=== PATIENT | male | born 2000 | race Caucasian/White ===

== ENCOUNTER 2023-04-30 12:29 | Outpatient (AMB) | payer OTHER, SELFPAY ==
--- NOTE | 2023-04-30 12:34 | A.OFFPC_ITS ---
Vital Signs 04/30/23 12:38 Height 6 ft 3 in Weight 142 lb 4 oz BMI 17.8 BP 128/82 Blood Pressure Location Lt brachial Position Sitting Pulse 75 Pulse Source Pulse Oximeter Pulse Oximetry (%) 99 Oxygen Delivery Method Room Air Intake Visit Reasons: NPV/ kidney issues Allergies NSAIDS (Non-Steroidal Anti-Inflamma Allergy (Mild, Verified 04/30/23 12:54) Agitated Medication List - Last Reconciled 04/30/23 by VERONICA Thakur No Known Home Meds Tobacco use date assessed: 04/30/23 Dental Screening Dental Screen Date: 04/30/23 Did you have a dental visit in the last 12 months?: No Did you have a dental problem in the last 6 months where you did not have access to dental care?: No Was dental information given to patient?: Yes HPI HPI Comments History of Present Illness Details 22-year-old male with CKD2, hydronephros is of the left kidney status post nephrectomy for nonfunctioning right kidney in 2001, 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 Echocardiogram within normal limits in 2018, echo in 2019., MDD, asthma, TOMASZ Specialists: Renal at [facility] , next visit 05/2023 Health Maintenance: Dental - out of care, needs list - provided today Here today to [facility] Reports has been out of care since Peds transition Reports that his renal conditions are currently being followed. Had blood work done recently. Unsure with the results are. This was done at [facility]. We will send a request for these records. Other concerns today include weight loss in the setting of a new sedentary job. Reports he was lifting weights and quite active before. Now that he has not as active he feels like he has lost a lot of muscle mass in his having a hard time gaining weight. He would like a referral to a cone machine feeder. When asked about Cardiology follow up given the Marfan syndrome he reports that he was told no need for additional follow up as he does not actually meet the criteria for Marfan. Last echo was in 2018. Has frequent headaches in his using Tylenol with good effect. Avoiding NSAIDs given his renal function Admits depressive and anxiety symptoms. Was on meds in the past. Last time about 4 years ago. Stopped taking on his own. Interested in counseling. Not interested in medications at this time. Feels exhausted all the time. Feels like he sleeps okay. Despite this he feels really really tired. Finally complains about chronic neck back and shoulder pain. Wants to see a chiropractor. The [place] Sleepiness Scale The [place] Sleepiness Scale is widely used in the field of sleep medicine as a subjective measure of a patient's sleepiness. The test is a list of eight situations in which you rate your tendency to become sleepy on a scale of 0, no chance of dozing, to 3, high chance of dozing. When you finish the test, add up the values of your responses. Your total score is based on a scale of 0 to 24. The scale estimates whether you are experiencing excessive sleepiness that possibly requires medical attention. How Sleepy Are You? How likely are you to doze off or fall asleep in the following situations? You should rate your chances of dozing off, not just feeling tired. Even if you have not done some of these things recently try to determine how they would have affected you. For each situation, decide whether or not you would have: ? No chance of dozing =0 ? Slight chance of dozing =1 ? Moderate chance of dozing =2 ? High chance of dozing =3 Write down the number corresponding to your choice in the right hand column. Total your score below. Situation Chance of Dozing Sitting and reading 1 Watching TV 2 Sitting inactive in a public place (e.g., a theater or a meeting) 0 As a passenger in a car for an hour without a break 3 Lying down to rest in the afternoon when circumstances permit 3 Sitting and talking to someone 0 Sitting quietly after a lunch without alcohol 0 In a car, while stopped for a few minutes in traffic o Total Score = 9 Analyze Your Score Interpretation: 0-7:It is unlikely that you are abnormal ly sleepy. 8-9:You have an average amount of daytim e sleepiness. 10-15:You may be excessively sleepy depe nding on the situation. You may want to consider seeking medical attention. 16-24:You are excessively sleepy and taylor uld consider seeking medical attention. Reference: Abi SMITH. A new method for measuring daytime sleepiness: The [place] Sleepiness Scale. Sleep 1991; 14(6):540-5. [facility] Medical History (Updated 04/30/23 @ 15:06 by CAROL Thakur) TOMASZ (generalized anxiety disorder) MDD (major depressive disorder), recurrent episode Surgical History (Updated 04/30/23 @ 15:04 by CAROL Thakur) History of nephrectomy, right Family History (Updated 04/30/23 @ 13:41 by Ayana Buck MA) Father Throat cancer Paternal Grandmother Hypertension Diabetes Social History Household Members: Significant Other Housing: Apartment Alcohol intake: current Alcohol intake frequency: holidays/special occasions only Patient Tobacco Use Status: Never used Tobacco e-Cigarette/Vaping Use: Former Use Substance Use Type: Marijuana Current occupational status: employed Current occupation: [employer] Cognitive needs: No Hearing needs: No Vision needs: Yes Questionnaire PHQ-9 Over the last 2 weeks, how often have you been bothered by any of the following problems? 1. Little interest or pleasure in doing things: more than half the days 2. Feeling down, depressed, or hopeless: several days 3. Trouble falling or staying asleep, or sleeping too much: more than half the days 4. Feeling tired or having little energy: nearly every day 5. Poor appetite or overeating: nearly every day 6. Feeling bad about yourself - or that you are a failure or have let yourself or your family down: several days 7. Trouble concentrating on things, such as reading the newspaper or watching television: not at all 8. Moving or speaking so slowly that other people could have noticed. Or the opposite - being so fidgety or restless that you have been moving around a lot more than usual: not at all 9. Thoughts that you would be better off or of hurting yourself in some way: several days Total score: 13 Depression Screening Interpretation: Positive Depression Screening Follow-up: Existing condition, Community Mental Health Worker F/U and Follow-up Visit Requested Depression Screening Done: Yes 83485 - PHQ-9 Billing: Yes Source: Developed by Drs. Oumar Bauer, Grace Noé Mckenzie and colleagues, with an educational suzan from [employer]. Thrive Questionnaire Date Thrive assessed: 04/30/23 I am a: Patient What is your living situation today?: I have a steady place to live Within the past 12 months, did the food you bought not last and you didn't have the money to get more?: Often true Within the past 12 months, did you worry whether your food would run out before you got money to buy more?: Often true Do you have trouble paying for medicines?: No Do you have trouble getting transportation to medical appointments?: No Do you have trouble paying your heating and electricity bill?: Yes Do you have trouble taking care of your child, family member or friend?: No Do you have trouble with day-to-day activities such as bathing, preparing meals, shopping, managing finances, etc.?: Yes Are you currently unemployed and looking for a job?: No Are you interested in more education?: No Please select the resources that you would like help with: Food and Daily support Currently or been in a relationship where the following occur: no concerns reported THRIVE Score: 3 AUDIT C Alcohol Use Questionnaire (AUDIT-C) 1. How often do you have a drink containing alcohol?: Monthly or less 2. How many drinks containing alcohol do you have on a typical day when you are drinking?: 1 or 2 3. How often do you have six or more drinks on one occasion?: Never Total Score: 1 Score Reviewed/Action Taken: Yes TOMASZ-7 AMB Questionnaire TOMASZ-7 Feeling nervous, anxious, or on edge: 2 = More than half the days Not being able to stop or control worryin = More than half the days Worrying too much about different things: 2 = More than half the days Trouble relaxin = More than half the days Being so restless that it is hard to sit still: 1 = Several days Becoming easily annoyed or irritable: 3 = Nearly every day Feeling afraid as if something awful might happen: 1 = Several days Total TOMASZ-7 score (0-4 normal; 5-9 mild; 10-14 moderate; 15-21 severe): 13 Source: Developed by Drs. Oumar Bauer, Noé Flores and colleagues, with an educational suzan from [employer]. TOMASZ-7 Assessment Billing TOMASZ-7 Assessment Tool: TOMASZ-7 Assessment 15796 Review of Systems Const All systems reviewed & are unremarkable except as noted in HPI and below Physical exam (Primary Care) Vital Signs: Last Vital Signs Pulse 75 04/30/23 12:38 BP 128/82 04/30/23 12:38 Pulse Ox 99 04/30/23 12:38 Oxygen Delivery Method Room Air 04/30/23 12:38 BMI result Body Mass Index 17.8 Tobacco/Smoking Status: Tobacco use Status Tobacco use date assessed 04/30/23 04/30/23 12:47 Patient Tobacco Use Status Never used Tobacco 04/30/23 12:47 e-Cigarette/Vaping Use Former Use 04/30/23 12:47 PHQ-9: PHQ-9 Score PHQ-9: Total score 13 04/30/23 13:42 Depression Screening Interpretation: Positive Depression Screening Follow-up: Existing condition, Community Mental Health Worker F/U and Follow-up Visit Requested Thrive Assessment: Date of Thrive Assessment Date Thrive assessed 04/30/23 04/30/23 13:42 Currently or been in a relationship where the following occur: no concerns reported Const Other: Awake alert oriented Tall and thin Mucous membranes moist Regular rate and rhythm Lung sounds clear to auscultation Mood and affect appropriate. Mildly anxious. Assessment and Plan Assessment & Plan (1) Underweight: Code(s): R63.6 - Underweight (2) History of nephrectomy, right: Comment: hydronephrosis of the left kidney status post nephrectomy for nonfunctioning right kidney in 2001, left vesicular ureteral reflux and post ureteral valve, valve fulguration as a in the left reimplantation in 2001 and again in 2002, Code(s): Z90.5 - Acquired absence of kidney (3) Marfanoid habitus: Comment: malar hypoplasia, enophthalmos, downward slanting palpebral fissures, positive wrist and thumb sign, scoliosis. Echocardiogram within normal limits in 2018. reports no longer requires cards f/u or Echo. Refer to chiro for c/o chronic neck, back, shoulder pain Code(s): R29.91 - Unspecified symptoms and signs involving the musculoskeletal system (4) CKD (chronic kidney disease) stage 2, GFR 60-89 ml/min: Comment: hydronephrosis of the left kidney status post nephrectomy for nonfunctioning right kidney in 2001, left vesicular ureteral reflux and post ureteral valve, valve fulguration as a in the left reimplantation in 2001 and again in 2002, Code(s): N18.2 - Chronic kidney disease, stage 2 (mild) (5) MDD (major depressive disorder), recurrent episode: Comment: Referred to counseling today. Was on medications in the past. We will discuss at next visit starting medications Code(s): F33.9 - Major depressive disorder, recurrent, unspecified Qualifiers: Major depression episode severity: mild Qualified Code(s): F33.0 - Major depressive disorder, recurrent, mild (6) TOMASZ (generalized anxiety disorder): Comment: Referred to counseling today. Was on medications in the past. We will discuss at next visit starting medications Code(s): F41.1 - Generalized anxiety disorder (7) Hypersomnolence: Code(s): G47.10 - Hypersomnia, unspecified Plan: slep study ordered (8) Fatigue: Code(s): R53.83 - Other fatigue Plan: sleep study ordered (9) Limited access to food: Code(s): Z59.48 - Other specified lack of adequate food Plan: Nurse Alfonso referral placed Plan This note is constructed using voice recognition software. While every effort has been made to ensure accuracy in or manager, still errors may have been included Sometimes, these errors may affect the content or meaning of the given sentence . Total time spent caring for the patient today was 60 minutes. This includes time spent before the visit reviewing the chart, time spent during the visit, and time spent after the visit on documentation Orders: Orders RT home sleep study Today G47.10 - Hypersomnia, unspecified, R53.83 - Other fatigue Referrals Nurse Navigator Referral F33.9 - Major depressive disorder, recurrent, unspecified, F41.1 - Generalized anxiety disorder Chiropractic Referral R29.91 - Unspecified symptoms and signs involving the musculoskeletal system Frame And Scrap Crusher Nutrition Referral R63.6 - Underweight Nurse Navigator Referral Z13.9 - Encounter for screening, unspecified, Z59.48 - Other specified lack of adequate food Patient Instructions: RTO 4 WEEKS TO REVIEW LABS AND DISCUSS SLEEP STUDY RESULTS AND MEDS FOR TOMASZ/MDD Coding Level of Care Code New Pt Level 5 (29373) Diagnoses Underweight R63.6 History of nephrectomy, right Z90.5 Marfanoid habitus R29.91 CKD (chronic kidney disease) stage 2, GFR 60-89 ml/min N18.2 Mild episode of recurrent major depressive disorder F33.0 Major depression episode severity: mild TOMASZ (generalized anxiety disorder) F41.1 Hypersomnolence G47.10 Fatigue R53.83 Limited access to food Z59.48 Additional Codes TOMASZ-7 Assessment Billing - TOMASZ-7 Assessment Tool: TOMASZ-7 Assessment [id number] ([id number])
[2023-04-30 12:38] VITALS: BP 128/82; PULSE 75; O2SAT 99; BMI 17.8
== END 2023-04-30 13:29 | disposition home or self-care (01) ==
PROVIDERS: PCP Nurse Practitioner Family; Visit Provider Nurse Practitioner Family
DX: R63.6 Underweight (principal); F33.0 Major depressive disorder, recurrent, mild; Z90.5 Acquired absence of kidney; R29.91 Unspecified symptoms and signs involving the musculoskeletal system; N18.2 Chronic kidney disease, stage 2 (mild); F41.1 Generalized anxiety disorder; G47.10 Hypersomnia, unspecified; R53.83 Other fatigue; Z59.48 Other specified lack of adequate food
CPT/HCPCS: 99205

== ENCOUNTER 2023-06-11 14:30 | Outpatient (AMB) | payer OTHER, SELFPAY ==
--- NOTE | 2023-06-11 14:42 | A.OFFPC_ITS ---
Vital Signs 06/11/23 14:47 Height 6 ft 3 in BP 124/87 Blood Pressure Location Rt brachial Position Sitting Respiration 13 Pulse 82 Pulse Source Pulse Oximeter Temp 98.4 F Temp Source Temporal Artery Scan Pulse Oximetry (%) 98 Oxygen Delivery Method Room Air Intake Visit Reasons: F/U LABS, SLEEP STUDY, Intake Note: Patient is here to follow up for labs and sleep study. Patient states he would like to discuss PT referral which is currently prescribed for 3x weekly for 4 weeks. Patient states his insurance is not good and this means copays every appointment and it isn't affordable right now. Patient reports he has not heard back from referrals he had asked for. 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 Echocardiogram within normal limits in 2018, echo in 2019., MDD, asthma, TOMASZ Specialists: Renal at [facility] , next visit 05/2023 [facility] Health Maintenance: Dental - out of care, needs list - provided today Here today for CPE: Will be seeing Chiro 3x/week x 4 weeks. Admits cannot afford the copays for this therapy. It was beneficial. Sleep study pending Would like to restart sertraline for mood; was on it in the past and did well. [facility] [place] Medical History (Updated 06/11/23 @ 15:46 by CAROL Thakur) TOMASZ (generalized anxiety disorder) MDD (major depressive disorder), recurrent episode Surgical History (Updated 04/30/23 @ 15:04 by CAROL Thakur) History of nephrectomy, right Family History (Updated 04/30/23 @ 13:41 by Ayana Buck [facility]) Father Throat cancer Paternal Grandmother Hypertension Diabetes Social History (Updated 06/11/23 @ 14:50 by Makenna Elise [facility]) Household Members: Significant Other Housing: Apartment Are you a primary child care center assistant director to a significant other at home: No Do you presently have visiting nurse or other home services: No 75 years or older and lives alone: No Alcohol intake: current Alcohol intake frequency: holidays/special occasions only Patient Tobacco Use Status: Never used Tobacco e-Cigarette/Vaping Use: Former Use Substance Use Type: Marijuana service: No Current occupational status: employed Current occupation: [employer] Current occupational exposures/hazards: No Sexual orientation: Straight/Heterosexual Gender identity: Male Cognitive needs: No Hearing needs: No Vision needs: Yes Questionnaire Thrive Questionnaire Date Thrive assessed: 04/30/23 Review of Systems Const Details: Constitutional: Denies fever. Skin: Denies rash. Eye: Denies eye pain. ENMT: Denies sore throat and nasal congestion. Respiratory: Denies shortness of breath and cough. Gastrointestinal: Denies nausea, vomiting or abdominal pain. Cardiovascular: Denies chest pain and syncope. Genitourinary: Denies dysuria. Musculoskeletal: Denies extremity pain. Neurologic: Denies headaches, confusion, and weakness. poor short term memory, falls asleep fast but wakes often throughout night; tosses and turns. witnessed apnea Psychiatric: Denies suicidal thoughts and substance abuse. Allergy/ Immunologic: Denies impaired immunity. Physical exam (Primary Care) Vital Signs: Last Vital Signs Temp 98.4 F 06/11/23 14:47 Pulse 82 06/11/23 14:47 Resp 13 06/11/23 14:47 BP 124/87 06/11/23 14:47 Pulse Ox 98 06/11/23 14:47 Oxygen Delivery Method Room Air 06/11/23 14:47 Tobacco/Smoking Status: Tobacco use Status Tobacco use date assessed 04/30/23 06/11/23 14:44 Patient Tobacco Use Status Never used Tobacco 06/11/23 14:50 e-Cigarette/Vaping Use Former Use 06/11/23 14:50 Thrive Assessment: Date of Thrive Assessment Date Thrive assessed 04/30/23 06/11/23 14:44 Const Other: General: Well developed, well nourished, in no acute distress. Appears stated age. Head: Normocephalic, atraumatic. Eyes: Pupils are equal, round and reactive to light and accommodation. Conjunctivae are clear. Vision grossly normal. Ears: cerumen impaction bilat Nose: Patent, without discharge. Mouth: There are no ulcers or lesions noted. No inflammation, no post nasal drip, no plaques nor exudates. Neck: Supple, no adenopathy or thyromegaly. Lungs: Clear to auscultation bilaterally. No rales, rhonchi or wheeze noted. Good air flow in all tabor. Heart: Regular rate and rhythm. No murmurs, click, rubs or gallops are noted. Abdomen: Bowel sounds present in all quadrants. Incidental + murphys sign noted. No hernias are noted. Musculoskeletal: Joints are nontender, without swelling, redness, or effusions. Range of motion is observed to be normal. marfanoid habitus Pulses: Peripheral pulses are equal and palpable bilaterally. Extremities: No clubbing, cyanosis nor edema is noted. Neurologic: Gait and station normal. Cranial Nerves 2-12 intact. Motor strength grossly symmetrical and intact. No sensory loss. Balance normal. Skin: No rashes, ulcers, or lesions noted. Turgor is good. Skin color is good. Hair and nails are without abnormalities. Psych: Normal eye contact, affect and mood appropriate, and normal interactions. Patient is alert and appropriate to context. 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, valve fulguration as a in the left reimplantation in 2001 and again in 2002, Code(s): N18.2 - Chronic kidney disease, stage 2 (mild) (3) Laboratory exam ordered as part of routine general medical examination: Code(s): Z00.00 - Encounter for general adult medical examination without abnormal findings (4) Positive Scott's Sign: Comment: incidental finding would like to check US Code(s): R19.8 - Other specified symptoms and signs involving the digestive system and abdomen (5) Impacted cerumen, bilateral: Comment: treat w debrox, RTO for lavage Code(s): H61.23 - Impacted cerumen, bilateral (6) TOMASZ (generalized anxiety disorder): Comment: Referred to counseling Restart sertraline 25mg po QD Code(s): F41.1 - Generalized anxiety disorder (7) MDD (major depressive disorder), recurrent episode: Comment: Referred to counseling Restart sertraline 25mg po QD Code(s): F33.9 - Major depressive disorder, recurrent, unspecified Qualifiers: Major depression episode severity: mild Qualified Code(s): F33.0 - Major depressive disorder, recurrent, mild Orders: Orders Comprehensive Met. Panel Today N18.2 - Chronic kidney disease, stage 2 (mild), Z00.00 - Encounter for general adult medical examination without abnormal findings Microalbumin, Random (w Creat) Today N18.2 - Chronic kidney disease, stage 2 (mild), Z00.00 - Encounter for general adult medical examination without abnormal findings Vitamin D 1,25 dihydroxy Today N18.2 - Chronic kidney disease, stage 2 (mild), Z00.00 - Encounter for general adult medical examination without abnormal findings Hemoglobin A1c Today N18.2 - Chronic kidney disease, stage 2 (mild), Z00.00 - Encounter for general adult medical examination without abnormal findings LDL Cholesterol Direct Today N18.2 - Chronic kidney disease, stage 2 (mild), Z00.00 - Encounter for general adult medical examination without abnormal findings TSH reflex Free T4 Today N18.2 - Chronic kidney disease, stage 2 (mild), Z00.00 - Encounter for general adult medical examination without abnormal findings US abdomen limited Today R19.8 - Other specified symptoms and signs involving the digestive system and abdomen Medications: New sertraline 25 mg PO DAILY 30 tabs 1RF carbamide peroxide 6.5% (Debrox) 5 drps otic (ears) DAILY 5 days 15 mL 0RF BILAT EARS Patient Instructions: START SERTRALINE FOR MOOD IMMEDIATLEY USE EAR DROPS IN BOTH EARS 5 DAYS BEFORE YOU COME TO SEE ME IN 6 WEEKS, I WILL FLUSH YOUR EARS FIND OUT ABOUT OUT OF POCKET COST FOR [place] IF COSTLY, SEND ME PORTAL MESSAGE AND I WILL CANCEL RTO IN 6 WEEKS TO F/U ON MOOD, SLEEP STUDY, LABS, ?US AND EAR LAVAGE Health screenings for men You should visit your health care provider regularly, even if you feel healthy. The purpose of these visits is to: Screen for medical issues Assess your risk for future medical problems Encourage a healthy lifestyle Update vaccinations and other preventive care services Help you get to know your provider in case of an illness Information Even if you feel fine, you should still see your provider for regular checkups. These visits can help you avoid problems in the future. For example, the only way to find out if you have high blood pressure is to have it checked regularly. High blood sugar and high cholesterol level also may not have any symptoms in the early stages. Simple blood tests can check for these conditions. There are specific times when you should see your provider or receive specific health screenings. The [place] Preventive Services Task Force publishes a list of recommended screenings. Below are screening guidelines for men ages 40 to 64. BLOOD PRESSURE SCREENING Have your blood pressure checked at least once every year. Watch for blood pressure screenings in your area. Ask your provider if you can stop in to have y our blood pressure checked. Ask your provider if you need your blood pressure checked more often if: You have diabetes, heart disease, kidney problems, or are overweight or have certain other health conditions You have a first-degree relative with high blood pressure You are Black Your blood pressure top number is from 120 to 129 mm Hg, or the bottom number is from 70 to 79 mm Hg If the top number is 130 mm Hg or greater or the bottom number is 80 mm Hg or greater, this is considered stage 1 hypertension. Schedule an appointment with your provider to learn how you can lower your blood pressure. Effects of age on blood pressure CHOLESTEROL SCREENING Cholesterol screening should begin at age 35 for men with no known risk factors for coronary heart disease. Repeat cholesterol screening should take place: Every 5 years for men with normal cholesterol levels More often if changes occur in lifestyle (including weight gain and diet) More often if you have diabetes, heart disease, kidney problems, or certain other conditions COLORECTAL CANCER SCREENING If you are under age 45, talk to your provider about getting screened. You may need to be screened if you have a strong family history of colon cancer or polyps. Screening may also be considered if you have risk factors such as a history of inflammatory bowel disease or polyps. If you are age 45 to 75, you should be screened for colorectal cancer. There are several screening tests available: A stool-based fecal occult blood (gFOBT) or fecal immunochemical test (FIT) every year A stool sDNA test every 1 to 3 years Flexible sigmoidoscopy every 5 years or every 10 years with stool testing FIT done every year CT colonography (virtual colonoscopy) every 5 years Colonoscopy every 10 years You may need a colonoscopy more often if you have risk factors for colorectal cancer, such as: Ulcerative colitis A personal or family history of colorectal cancer A history of growths in your colon called adenomatous polyps DENTAL EXAM Go to the dentist once or twice every year for an exam and cleaning. Your dentist will evaluate if you have a need for more frequent visits. DIABETES SCREENING All adults who do not have risk factors for diabetes should be screened starting at age 35 and repeated every 3 years. If you have other risk factors for diabetes, such as a first degree relative with diabetes, overweight or obesity, high blood pressure, prediabetes, or a history of heart disease, you may be tested more often. If you are overweight and have other risk factors, such as high blood pressure and are planning to become , screening is recommended. EYE EXAM Have an eye exam every 2 to 4 years ages 40 to 54 and every 1 to 3 years ages 55 to 64. Your provider may recommend more frequent eye exams if you have vision problems or glaucoma risk. Have an eye exam that includes an examination of your retina (back of your eye) at least every year if you have diabetes. IMMUNIZATIONS Commonly needed vaccines include: Flu shot: get one every year COVID-19 vaccine: ask your provider what is best for you Tetanus-diphtheria and acellular pertussis (Tdap) vaccine: have as one of your tetanus-diphtheria vaccines if you did not receive it as an adolescent Tetanus-diphtheria: have a booster (or Tdap) every 10 years Varicella vaccine: receive 2 doses if you never had chickenpox or the varicella vaccine and were born in 1980 or after Hepatitis B vaccine: receive 2, 3, or 4 doses, depending on your exact circumstances, if you did not receive these as a child or adolescent, until age 59 Shingles (herpes zoster) vaccine: at or after age 50 Ask your provider if you should receive other immunizations, especially if you have certain medical conditions, such as diabetes or are at increased risk for some diseases such as pneumonia. INFECTIOUS DISEASE SCREENING Screening for hepatitis C: all adults ages 18 to 79 should get a one-time test for hepatitis C. Screening for human immunodeficiency virus (HIV): all people ages 15 to 65 should get a one-time test for HIV. Depending on your lifestyle and medical history, you may need to be screened for infections such as syphilis, chlamydia, and other infections. LUNG CANCER SCREENING You should have an annual screening for lung cancer with low-dose computed tomography (LDCT) if: You are age 50 to 80 years AND You have a 20 pack-year smoking history AND You currently smoke or have quit within the past 15 years OSTEOPOROSIS SCREENING If you are age 50 to 64 and have risk factors for osteoporosis, you should discuss screening with your provider. Risk factors can include long-term steroid use, low body weight, smoking, heavy alcohol use, having a fracture after age 50, or a family history of hip fracture or osteoporosis. Osteoporosis PHYSICAL EXAM All adults should visit their provider from time to time, even if they are healthy. The purpose of these visits is to: Screen for diseases Assess risk of future medical problems Encourage a healthy lifestyle Update vaccinations and other preventive care services Maintain a relationship with a provider in case of an illness Your height, weight, and body mass index (BMI) should be checked at every exam. During your exam, your provider may ask you about: Depression and anxiety Diet and exercise Alcohol and tobacco use Safety, such as use of seat belts and smoke detectors Your medicines and risk for interactions PROSTATE CANCER SCREENING If you're 55 through 69 years old, before having the test, talk to your provider about the pros and cons of having a PSA test. Ask about: Whether screening decreases your chance of dying from prostate cancer. Whether there is any harm from prostate cancer screening, such as side effects from testing or overtreatment of cancer when discovered. Whether you have a higher risk of prostate cancer than others. If you are age 55 or younger, screening is not generally recommended. You should talk with your provider about if you have a higher risk for prostate cancer. Risk factors include: Having a family history of prostate cancer (especially a brother or father) Being If you choose to be tested, the PSA blood test is repeated over time (yearly or less often), though the best frequency is not known. Prostate examinations are no longer routinely done on men with no symptoms. Prostate cancer SKIN EXAM Your provider may check your skin for signs of skin cancer, especially if you're at high risk. People at high risk include those who have had skin cancer before, have close relatives with skin cancer, or have a weakened immune system. TESTICULAR EXAM The [place] Preventive Services Task Force (USPSTF) now recommends against performing testicular self-exams. Doing testicular self-exams has been shown to have little to no benefit. Earwax (Cerumen Impaction) Created in Ears Earwax, called cerumen, is produced by special wax-forming glands located in the skin of the outer one-third of the ear canal. It is normal to have cerumen in ear canal as this waxy substance serves as a self-cleaning agent with protective, lubricating, and antibacterial properties. The absence of earwax may result in dry, itchy ears. Self-cleaning means there is a slow and pharmacovigilance specialist movement of earwax and skin cells from the eardrum to the ear opening. Old earwax is constantly being transported, assisted by chewing and jaw motion, from the ear canal to the ear opening where, most of the time, it dries, flakes, and falls out. What Are the Symptoms of an Earwax Blockage? Symptoms of an earwax problem may include: Earache Feeling of plugged hearing or fullness in the ear Partial hearing loss that gets worse Tinnitus, ringing, or noises in the ear Itching, odor, or discharge Coughing Pain Infection What Causes Earwax Blockage? When a patient has wax blockage against the eardrum, it is often because they have been probing the ear with such things as cotton-tipped swabs, brody pins, or twisted napkin corners. These objects only push the wax in deeper in the ear canal. Why Is It Dangerous to Use Swabs to Remove Earwax? Wax blockage is one of the most common causes of hearing loss. This is often caused by attempts to clean the ear with cotton swabs. Most cleaning attempts merely push the wax deeper into the ear canal which is shaped like an hourglass, causing a blockage at the narrowing part of the ear canal. In addition, accide ntal trauma to the ear drum or ear bones can occur if the swab is pushed too deep. Good intentions to keep ears clean may lessen the ability to hear. The ear is a delicate and complicated body part, including the skin of the ear canal and the eardrum. Therefore, special care should be given to this part of the body. Discontinue the habit of inserting cotton-tipped swabs or other objects into the ear canals. What Are the Treatment Options? Cleaning a working ear can be done by washing it with a soft cloth, but do not insert anything into the ear. Ideally, the ear canals should never have to be cleaned. However, that isn?t always the case. The ears should be cleaned when enough earwax gathers to cause symptoms or to prevent a needed assessment of the ear by your doctor. This condition is call cerumen impaction. Most cases of ear wax blockage respond to home treatments used to soften wax. Patients can try placing a few drops of mineral oil, baby oil, glycerin, or commercial drops in the ear. Detergent drops such as hydrogen peroxide or carbamide peroxide (available in most pharmacies) may also aid in the removal of wax. Irrigation or ear syringing is commonly used for cleaning and can be performed by a physician or at home using a commercially available irrigation kit. Common solutions used for syringing include water and saline, which should be warmed to body temperature to prevent dizziness. Ear syringing is most effective when water, saline, or wax dissolving drops are put in the ear canal 15 to 30 minutes before treatment. Caution is advised to avoid having your ears irrigated if you have diabetes, a hole in the eardrum (perforation), tube in the eardrum, skin problems such as eczema in the ear canal or a weakened immune system. >> If you have been prescribed Debrox, use as directed for 5 nights and return to the office on Day 6 for an ear lavage to remove the wax<< Manual removal of earwax is also effective. This is most often performed by an ENT (ear, nose, and throat) specialist, or health insurance adjuster, using suction or special miniature instruments, and a microscope to magnify the ear canal. Manual removal is preferred if your ear canal is narrow, the eardrum has a perforation or tube, other methods have failed, or if you have skin problems affecting the ear canal, diabetes or a weakened immune system. When Should I Talk to a Doctor? If home treatments do not help, or if wax has accumulated so much that it blocks your ear canal and your ability to hear, an ENT specialist may prescribe eardrops designed to soften wax, or they may wash or vacuum it out. Your ENT specialist may also need to remove the wax under microscopic visualization. If there is a possibility of a perforation in the eardrum, consult a physician prior to trying any [id number] remedies. Putting eardrops or other products in the ear with the presence of an eardrum perforation may cause pain or an infection. Washing water through such a hole could start an infection. If you are prone to repeated wax impaction or use hearing aids, consider seeing your doctor every six to 12 months for a checkup and routine preventive cleaning. What Questions Should I Ask My Doctor? What are the benefits and risks/side effects of different cerumen removal management options: earwax softening products, water irrigation vs. physical removal? Does cerumen accumulation vary with age, gender, familial or dietary intake? How do I manage swimming underwater with cerumen impaction? Should anything be done to the ears to prevent a buildup of earwax? How often should cerumen be removed from the ears? Are ear candles a safe option for removing earwax? Coding Level of Care Code Est Pt Prev Care [id number]) Diagnoses Encounter for general adult medical examination without abnormal findings Z00.00 CKD (chronic kidney disease) stage 2, GFR 60-89 ml/min N18.2 Laboratory exam ordered as part of routine general medical examination Z00.00 Positive Scott's Sign R19.8 Impacted cerumen, bilateral H61.23 TOMASZ (generalized anxiety disorder) F41.1 Mild episode of recurrent major depressive disorder F33.0 Major depression episode severity: mild
[2023-06-11 14:47] VITALS: BP 124/87; PULSE 82; RESP 13; TEMP 36.9; O2SAT 98
== END 2023-06-11 15:43 | disposition home or self-care (01) ==
PROVIDERS: PCP Nurse Practitioner Family; Visit Provider Nurse Practitioner Family
DX: Z00.00 Encounter for general adult medical examination without abnormal findings (principal); F33.0 Major depressive disorder, recurrent, mild; H61.23 Impacted cerumen, bilateral; N18.2 Chronic kidney disease, stage 2 (mild); R19.8 Other specified symptoms and signs involving the digestive system and abdomen; F41.1 Generalized anxiety disorder
CPT/HCPCS: 99395

== ENCOUNTER → 2023-06-17 08:05 | Outpatient (REF) | payer OTHER, SELFPAY | LOC: HO.SL 08:05 | PROVIDERS: PCP Nurse Practitioner Family; Visit Provider Nurse Practitioner Family | DX: G47.10 Hypersomnia, unspecified (principal); R53.83 Other fatigue; R06.83 Snoring | CPT/HCPCS: 95806 ==

== ENCOUNTER → 2023-06-17 08:19 | Outpatient (BNV) | payer OTHER, SELFPAY | PROVIDERS: PCP Nurse Practitioner Family; Visit Provider Internal Medicine | DX: G47.10 Hypersomnia, unspecified (principal); R06.83 Snoring | CPT/HCPCS: 95806 ==

== ENCOUNTER 2023-06-23 14:28 | Outpatient (AMB) | payer OTHER, SELFPAY ==
--- NOTE | 2023-06-23 14:32 | A.OFFVIS_ITS ---
VS Expanded 06/23/23 14:53 06/30/23 10:50 Height 6 ft 3 in 6 ft 3 in Weight 146 lb 9.718 oz 147 lb BMI 18.3 18.4 Intake Visit Reasons: Underweight/ LVM Allergies NSAIDS (Non-Steroidal Anti-Inflamma Allergy (Mild, Verified 06/11/23 15:17) Agitated Nutrition Presentation Details: Pt presents for MNT for underweight .Pt was referred by PCP Kalen Benoit Pt reports highest wt highest 150 lbs and lowest wt at 130 lbs Wt loss related to multiple factors including lack of meal planning , sometimes worried about not enough money for food. Pt has a solitary kidney , left d/t right nephrectomy, has hx of TOMASZ, MDD Reports liking a variety of foods and at times choosing fast food meals d/t lack of meal planning Food choices 10 am mozzarella sticks , water at work 1-2 pm: pizza or burger/fries, water soda 5-7 pm : burrito bowl or sweetened cereal with whole milk physical activity: daily life activities etoh/smoking------ was counting calories and reaching 3500 /day , working on gradually increasing calories BS Monitoring Most Recent Diabetes Results: No Data to Display LQM-Whbqaqx-Yf.Jeor Equation Height: 6 ft 3 in Weight: 147 lb Resting Metabolic Rate: 1753.50 Diagnosis Nutrition problem #1: increased nutrient needs As related to (etiology) #1: diagnosis As evidenced by (sign/symptom) #1: low BMI (18.3 (06/2023)) [facility] Medical History (Updated 06/29/23 @ 09:20 by Edith Lara PA-C) TOMASZ (generalized anxiety disorder) MDD (major depressive disorder), recurrent episode Surgical History (Updated 04/30/23 @ 15:04 by SORAYA Thakur-) History of nephrectomy, right Family History (Updated 04/30/23 @ 13:41 by Ayana Buck LIBRARY HISTORIAN) Father Throat cancer Paternal Grandmother Hypertension Diabetes Social History (Updated 06/11/23 @ 14:50 by Makenna Elise [facility]) Household Members: Significant Other Housing: Apartment Are you a primary care rep to a significant other at home: No Do you presently have visiting nurse or other home services: No Alcohol intake: current Alcohol intake frequency: holidays/special occasions only Patient Tobacco Use Status: Never used Tobacco e-Cigarette/Vaping Use: Former Use Substance Use Type: Marijuana service: No Current occupational status: employed Current occupation: [employer] Current occupational exposures/hazards: No Sexual orientation: Straight/Heterosexual Gender identity: Male Cognitive needs: No Hearing needs: No Vision needs: Yes Assessment & Plan Assessment & Plan (1) Underweight: Code(s): R63.6 - Underweight Category: Medical Plan: Pt reports lack of meal planning and often skipping meals leading to decreased caloric intake and prevention of weight gain. Pt reports working on increasing caloric intake to 3500 and has noticed weight gain Will continue to reinforce 3 meals per day and snacks in between , goal > 3500 calories per day to promote gradual weight gain . Goal : having 3 meals and 3 snacks throughout the day , working on not skipping meals Choose nutrient dense beverages : 100% fruit juices, whole milk, smoothies Follow healthy plate method in majority of the meals provided Pt with list of food pantry choices Wt: Kg ( ) Est kcal needs as per MSJ: (40% carb, 30% protein/fat) Est fluid needs as per 25-30 ml/d: Est prot per day as per 1 g/kg bw: Recommend fiber intake : 8-10 g per day and gradually increase to 25-28 g per day for women and 35-38 g for men or as tolerated Recommend sodium intake per day : less than 1500 mg less than 2000 mg Educated patient on: ( R = reviewed V = verbalizes understanding N/R = needs review N/A = not applicable * Food sources of carbohydrate, adequate serving sizes and its role in various health conditions: R V N/R * Differences between complex carbohydrates a simple carbohydrates, role of fiber in diet: R V N/R * Lean protein sources of foods: R V NR * Differences between types of fats and role in diet (mono on saturated fat fatty acids, saturated fatty acids, trans fats): R V N/R * Food sources of sodium in salt and healthy modifications for heart health in kidney health: R V R/V * Vitamins and minerals: R V N/R * Healthy plate method concept: R V N/R * Physical activity: Benefits a precaution: R V N/R * Hypoglycemia protocol (rule of 15): R V N/R * Dietary prevention of Hyperglycemia: R V R/V Coding Level of Care Code Nutr Indiv Intake (10739) Diagnoses Underweight R63.6 Time Spent (min) 30
[2023-06-23 14:53] VITALS: BMI 18.3
[2023-07-01 14:06] VITALS: BMI 18.4
== END 2023-06-23 15:09 | disposition home or self-care (01) ==
PROVIDERS: PCP Nurse Practitioner Family; Visit Provider Dietitian, Registered
DX: R63.6 Underweight (principal)

== ENCOUNTER → 2023-06-23 14:28 | Outpatient (BNVA) | payer OTHER, SELFPAY | PROVIDERS: PCP Nurse Practitioner Family; Visit Provider Dietitian, Registered | DX: R63.6 Underweight (principal); Z68.1 Body mass index [BMI] 19.9 or less, adult; Z71.3 Dietary counseling and surveillance | CPT/HCPCS: 97802 ==

== ENCOUNTER 2023-06-29 07:47 | Outpatient (REF) | payer OTHER, SELFPAY ==
--- NOTE | ~2023-06-29 | US_ITS ---
EXAMINATION: US ABDOMEN COMPLETE CLINICAL INFORMATION: Other specified symptoms and signs involving the digestive system and abdomen. COMPARISON: None available. TECHNIQUE: Real-time imaging of the abdominal viscera. FINDINGS: PANCREAS: Obscured by bowel gas. ABDOMINAL AORTA: The proximal, mid, and distal segments are normal in caliber. INFERIOR VENA CAVA: Visualized portions are normal. LIVER: Normal. The liver is normal in size. The liver contour is normal. Parenchymal echogenicity is normal. No focal hepatic lesion. There is no intrahepatic biliary duct dilatation seen. GALLBLADDER: Normal. The gallbladder is physiologically distended without evidence of stones, sludge, polyps, wall thickening or pericholecystic fluid. COMMON BILE DUCT: Normal in caliber measuring 0.4 cm in diameter. RIGHT KIDNEY: The patient reports right kidney was removed in 2001. LEFT KIDNEY: Mildly dilated calyces doubt overt hydronephrosis. Correlate with the patient's urologic history. No renal calculi or focal parenchymal lesions. The kidney measures 13.1 cm in maximum dimension. SPLEEN: Normal. The spleen measures 12.6 cm in maximum dimension. FREE FLUID: None. US/US abdomen complete IMPRESSION: No explanation for abdominal pain and positive Scott sign. The gallbladder appears normal. No cholelithiasis. Negative sonographic Scott sign.
== END 2023-06-29 07:48 | disposition home or self-care (01) ==
LOC: HO.US 07:47
PROVIDERS: PCP Nurse Practitioner Family; Visit Provider Nurse Practitioner Family
DX: R19.8 Other specified symptoms and signs involving the digestive system and abdomen (principal)
CPT/HCPCS: 76700

== ENCOUNTER 2023-07-26 10:27 | Outpatient (AMB) | payer OTHER, SELFPAY ==
--- NOTE | 2023-07-26 10:32 | A.OFFPC_ITS ---
Vital Signs 07/26/23 10:36 Height 6 ft 3 in Weight 151 lb 4 oz BMI 18.9 BP 104/68 Blood Pressure Location Lt brachial Position Sitting Respiration 12 Pulse 69 Pulse Source Pulse Oximeter Temp 98.7 F Temp Source Oral Pulse Oximetry (%) 98 Oxygen Delivery Method Room Air Intake Visit Reasons: 6 fu labs, MDD/TOMASZ and Sleep study Intake Note: F/U. Pt didnt take ear drop medications as prescribed. Allergies NSAIDS (Non-Steroidal Anti-Inflamma Allergy (Mild, Verified 07/26/23 10:33) Agitated Medication List - Last Reconciled 07/26/23 by Kirti Tejeda, SPECIAL ASSEMBL[employer] SUPERVISOR- carbamide peroxide 6.5% (Debrox) 5 drps otic (ears) DAILY 5 days sertraline 25 mg PO DAILY Tobacco use date assessed: 07/26/23 Dental Screening Dental Screen Date: 07/26/23 Did you have a dental visit in the last 12 months?: No Did you have a dental problem in the last 6 months where you did not have access to dental care?: No Was dental information given to patient?: Patient declined HPI HPI Comments History of Present Illness Details 22-year-old male with CKD2, hydronephros is of the left kidney status post nephrectomy for nonfunctioning right kidney in 2001, 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 Echocardiogram within normal limits in 2018, echo in 2019., MDD, asthma, TOMASZ Specialists: [facility]al at [facility] , last visit 05/2023 [facility] Here today for of chronic conditions Did not use Debrox for ears. Will need to lavage bilat ears at next visit. Did not get labs done but will do this today. cont to have postprandial abd pain. Fatty foods make it worse. Pain can be so bad that he cannot stand up. Lasts only a few minutes. ABD US negative. reviewed /w him today. Taking sertraline as directed. Denies SI/HI. Mood the same. Not in counseling. Plan to increase his sertraline to 50mg QD. Incidental finding of tachycardia during his sleep study. Denies neuro or cardiac complaints. Sleep study results reviewed w/ him today. HOLTER was ordered and pending. Home sleep study 06/24/2023 negative for sleep apnea, total sleep time AHI 0. There was moderate amount of snoring, 30% of the sleep time. No nocturnal hypoxemia recorded. However in review of the heart rate stat it shows that the heart rate was 255 beats per minute on the high end at 45 beats per minute on the low end. >> rec holter I need to order labs Abd US for + murphys US/US abdomen complete IMPRESSION: No explanation for abdominal pain and positive Scott sign. The gallbladder appears normal. No cholelithiasis. Negative sonographic Scott sign. [facility] Medical History (Updated 07/26/23 @ 11:26 by CAROL Thakur) TOMASZ (generalized anxiety disorder) MDD (major depressive disorder), recurrent episode Surgical History (Updated 04/30/23 @ 15:04 by CAROL Thakur) History of nephrectomy, right Family History (Updated 04/30/23 @ 13:41 by Ayana Buck [facility]) Father Throat cancer Paternal Grandmother Hypertension Diabetes Social History (Updated 06/11/23 @ 14:50 by Makenna Elise [facility]) Household Members: Significant Other Housing: Apartment Are you a primary healthcare translator to a significant other at home: No Do you presently have visiting nurse or other home services: No 75 years or older and lives alone: No Alcohol intake: current Alcohol intake frequency: holidays/special occasions only Patient Tobacco Use Status: Never used Tobacco e-Cigarette/Vaping Use: Former Use Substance Use Type: Marijuana service: No Current occupational status: employed Current occupation: [employer] Current occupational exposures/hazards: No Sexual orientation: Straight/Heterosexual Gender identity: Male Cognitive needs: No Hearing needs: No Vision needs: Yes Questionnaire PHQ-9 Over the last 2 weeks, how often have you been bothered by any of the following problems? 1. Little interest or pleasure in doing things: several days 2. Feeling down, depressed, or hopeless: more than half the days 3. Trouble falling or staying asleep, or sleeping too much: more than half the days 4. Feeling tired or having little energy: more than half the days 5. Poor appetite or overeating: more than half the days 6. Feeling bad about yourself - or that you are a failure or have let yourself or your family down: several days 7. Trouble concentrating on things, such as reading the newspaper or watching television: not at all 8. Moving or speaking so slowly that other people could have noticed. Or the opposite - being so fidgety or restless that you have been moving around a lot more than usual: not at all 9. Thoughts that you would be better off or of hurting yourself in some way: several days Total score: 11 Depression Screening Interpretation: Positive Depression Screening Follow-up: Existing condition and In treatment Depression Screening Done: Yes 18137 - PHQ-9 Billing: Yes Source: Developed by Drs. Ouamr Bauer, Grace Smith, Noé García and colleagues, with an educational suzan from [employer]. Thrive Questionnaire Date Thrive assessed: 04/30/23 AUDIT C Alcohol Use Questionnaire (AUDIT-C) 1. How often do you have a drink containing alcohol?: Monthly or less 2. How many drinks containing alcohol do you have on a typical day when you are drinking?: 3 or 4 3. How often do you have six or more drinks on one occasion?: Never Total Score: 2 Score Reviewed/Action Taken: Yes TOMASZ-7 AMB Questionnaire TOMASZ-7 Date TOMASZ - 7 assessed: 07/26/23 Feeling nervous, anxious, or on edge: 1 = Several days Not being able to stop or control worryin = Several days Worrying too much about different things: 2 = More than half the days Trouble relaxin = More than half the days Being so restless that it is hard to sit still: 1 = Several days Becoming easily annoyed or irritable: 2 = More than half the days Feeling afraid as if something awful might happen: 2 = More than half the days Total TOMASZ-7 score (0-4 normal; 5-9 mild; 10-14 moderate; 15-21 severe): 11 Source: Developed by Drs. Oumar Bauer, Grace Smith, Noé aGrcía and colleagues, with an educational suzan from [employer]. TOMASZ-7 Assessment Billing TOMASZ-7 Assessment Tool: TOMASZ-7 Assessment 56888 Review of Systems Const All systems reviewed & are unremarkable except as noted in HPI and below Physical exam (Primary Care) Vital Signs: Last Vital Signs Temp 98.7 F 07/26/23 10:36 Pulse 69 07/26/23 10:36 Resp 12 07/26/23 10:36 BP 104/68 07/26/23 10:36 Pulse Ox 98 07/26/23 10:36 Oxygen Delivery Method Room Air 07/26/23 10:36 BMI result Body Mass Index 18.9 Tobacco/Smoking Status: Tobacco use Status Tobacco use date assessed 07/26/23 07/26/23 10:38 Patient Tobacco Use Status Never used Tobacco 07/26/23 10:38 e-Cigarette/Vaping Use Former Use 07/26/23 10:38 PHQ-9: PHQ-9 Score PHQ-9: Total score 11 07/26/23 10:41 Depression Screening Interpretation: Positive Depression Screening Follow-up: Existing condition and In treatment Thrive Assessment: Date of Thrive Assessment Date Thrive assessed 04/30/23 07/26/23 10:38 Const Other: General: Well developed, well nourished, in no acute distress. Appears stated age. Ears: cerumen impaction bilat Lungs: Clear to auscultation bilaterally. No rales, rhonchi or wheeze noted. Good air flow in all tabor. Heart: Regular rate and rhythm. No murmurs, click, rubs or gallops are noted. Abdomen: Bowel sounds present in all quadrants. No pain w/ palpation, no organomegaly. No hernias are noted. Musculoskeletal: Joints are nontender, without swelling, redness, or effusions. Range of motion is observed to be normal. marfanoid habitus Neurologic: Gait and station normal. Cranial Nerves 2-12 intact. Motor strength grossly symmetrical and intact. No sensory loss. Balance normal. Psych: Normal eye contact, affect and mood appropriate, and normal interactions. Patient is alert and appropriate to context. mildly anxious, very polite Assessment and Plan Assessment & Plan (1) Positive Scott's Sign: Comment: negative US findings Check H PYlori stool Code(s): R19.8 - Other specified symptoms and signs involving the digestive system and abdomen (2) Impacted cerumen, bilateral: Comment: treat w debrox, RTO for lavage Code(s): H61.23 - Impacted cerumen, bilateral (3) Tachycardia: Comment: check holter & labs Code(s): R00.0 - Tachycardia, unspecified (4) TOMASZ (generalized anxiety disorder): Comment: Referred to counseling - no appt yet increase sertraline from 25 mg to 50mg QD Code(s): F41.1 - Generalized anxiety disorder (5) MDD (major depressive disorder), recurrent episode: Comment: see TOMASZ Code(s): F33.9 - Major depressive disorder, recurrent, unspecified Qualifiers: Major depression episode severity: mild Qualified Code(s): F33.0 - Major depressive disorder, recurrent, mild Plan This note is constructed using voice recognition software. While every effort has been made to ensure accuracy in manager event, still errors may have been included Sometimes, these errors may affect the content or meaning of the given sentence . Total time spent caring for the patient today was 30 minutes. This includes time spent before the visit reviewing the chart, time spent during the visit, and time spent after the visit on documentation Orders: Orders H pylori Ag Stool Today R19.8 - Other specified symptoms and signs involving the digestive system and abdomen Medications: New sertraline 50 mg PO DAILY 30 tabs 1RF Discontinued sertraline Discontinued Reason: Change Referral Type 25 mg PO DAILY 30 tabs 1RF Patient Instructions: Increase sertraline to 50mg daily (ok to take 2 of the 25mg that you have right now ) PLease get the Holter monitor done along w/ your labs and stool sample Use the ear drops and return for ear lavage 6 weeks 30 min with [place] LABs, Ear lavage, MDD/TOMASZ, abd pain Coding Level of Care Code Est Pt Level 4 (49764) Diagnoses Positive Scott's Sign R19.8 Impacted cerumen, bilateral H61.23 Tachycardia R00.0 TOMASZ (generalized anxiety disorder) F41.1 Mild episode of recurrent major depressive disorder F33.0 Major depression episode severity: mild Additional Codes TOMASZ-7 Assessment Billing - TOMASZ-7 Assessment Tool: TOMASZ-7 Assessment 08231 ([id number])
[2023-07-26 10:36] VITALS: BP 104/68; PULSE 69; RESP 12; TEMP 37.1; O2SAT 98; BMI 18.9
== END 2023-07-26 11:30 | disposition home or self-care (01) ==
PROVIDERS: PCP Nurse Practitioner Family; Visit Provider Nurse Practitioner Family
DX: R19.8 Other specified symptoms and signs involving the digestive system and abdomen (principal); F33.0 Major depressive disorder, recurrent, mild; H61.23 Impacted cerumen, bilateral; R00.0 Tachycardia, unspecified; F41.1 Generalized anxiety disorder
CPT/HCPCS: 99214

== ENCOUNTER 2023-07-26 11:38 | Outpatient (REF) | payer OTHER, SELFPAY ==
[2023-07-26 15:03] LABS: Creatinine Urine 83.79 mg/dL; Microalbumin Urine < 5.0 mg/L
[2023-07-26 15:12] LABS: Estimated Average Glucose 91 mg/dL; Hemoglobin A1c % 4.8 % (<6.0)
[2023-07-26 15:16] LABS: Alanine Aminotransferase 21 U/L (0-40); Albumin Level 4.6 g/dL (3.5-5.0); Alkaline Phosphatase 79 U/L (39-117); Anion Gap 10 (12-20); Aspartate Amino Transferase 23 U/L (5-37); Blood Urea Nitrogen 12 mg/dL (9-16); Calcium 9.9 mg/dL (8.4-10.2); Carbon Dioxide 28 mmol/L (22-29); Chloride 107 mmol/L (96-108); Estimated Glomerular Filt Rate > 60; Glucose Random 85 mg/dL (60-115); Potassium 3.6 mmol/L (3.3-5.1); Sodium 141 mmol/L (135-145); TSH reflex Free T4 0.71 uIU/mL (0.32-4.0); Total Protein 7.2 g/dL (6.5-8.0)
[2023-07-28 02:40] LABS: LDL Cholesterol Direct 81 mg/dL (<100)
[2023-07-30 21:44] LABS: VITAMIN D (1,25 OH) D3 26 pg/mL; Vit D (1,25-Dihydroxy) Total 26 pg/mL (18-72); Vitamin D (1,25 OH) D2 <8 pg/mL
== END 2023-07-26 11:39 | disposition home or self-care (01) ==
LOC: HO.WFDLDS 11:38
PROVIDERS: Visit Provider Nurse Practitioner Family
DX: Z00.00 Encounter for general adult medical examination without abnormal findings (principal); Z13.1 Encounter for screening for diabetes mellitus; N18.2 Chronic kidney disease, stage 2 (mild)
CPT/HCPCS: 36415; 80053; 82043; 82570; 82652; 83036; 83721; 84443

== ENCOUNTER → 2023-07-30 07:07 | Outpatient (REF) | payer OTHER, SELFPAY ==
--- NOTE | 2023-07-30 07:10 | HM_ITS ---
* Total monitoring time 1 day. * Underlying rhythm is sinus. Average ventricular rate 73/Min. * No significant ectopy, lydia or tachyarrhythmias. * No significant pauses or AV blocks. * No patient markers or diary events. MTDD
== END ==
LOC: HO.CARD 07:07
PROVIDERS: PCP Physician Assistant; Visit Provider Physician Assistant
DX: R00.0 Tachycardia, unspecified (principal); R00.1 Bradycardia, unspecified
CPT/HCPCS: 93225

== ENCOUNTER → 2023-07-30 07:10 | Outpatient (BNV) | payer OTHER, SELFPAY | PROVIDERS: PCP Physician Assistant; Visit Provider Internal Medicine | DX: R00.0 Tachycardia, unspecified (principal) | CPT/HCPCS: 93227 ==

== ENCOUNTER 2023-08-09 08:27 | Outpatient (AMB) | payer OTHER, SELFPAY ==
[2023-08-09 08:31] VITALS: BMI 18.8
--- NOTE | 2023-08-09 08:31 | A.OFFVIS_ITS ---
VS Expanded 08/09/23 08:31 Height 6 ft 3 in Weight 150 lb 9.211 oz BMI 18.8 Intake Visit Reasons: Underweight/LVM Allergies NSAIDS (Non-Steroidal Anti-Inflamma Allergy (Mild, Verified 07/26/23 10:33) Agitated Nutrition Presentation Details: Pt presents for MNT f/u for underweight ETOH : occ Pt reports working on having 3 meals day Eating out most days of the week B: sausage/egg cheese on [place] muffin/bagel , water , breakfasts burrito cheese stick L: rice/pork or chicken or chicken burger coleslaw or meatballcorn bread, cheese dinner pasta with pasta salad or chipotle Snacks on cheese sticks BS Monitoring Most Recent Diabetes Results: Microalb/Creat Ratio TNP 07/26/23 Creatinine 1.29 mg/dL (0.5-1.4) 07/26/23 Blood Urea Nitrogen 12 mg/dL (9-16) 07/26/23 Sodium 141 mmol/L (135-145) 07/26/23 Potassium 3.6 mmol/L (3.3-5.1) 07/26/23 Chloride 107 mmol/L (96-108) 07/26/23 Carbon Dioxide 28 mmol/L (22-29) 07/26/23 Calcium 9.9 mg/dL (8.4-10.2) 07/26/23 AST 23 U/L (5-37) 07/26/23 ALT 21 U/L (0-40) 07/26/23 Total Protein 7.2 g/dL (6.5-8.0) 07/26/23 Albumin 4.6 g/dL (3.5-5.0) 07/26/23 [facility] Medical History (Updated 08/02/23 @ 09:19 by CAROL Thakur) TOMASZ (generalized anxiety disorder) MDD (major depressive disorder), recurrent episode Surgical History (Updated 04/30/23 @ 15:04 by SORAYA Thakur-MELISSA) History of nephrectomy, right Family History (Updated 07/29/23 @ 10:02 by Seda [facility]els [facility] Father Throat cancer Cardiovascular disease Paternal Grandmother Hypertension Diabetes Maternal Grandfather A-fib Social History (Updated 06/11/23 @ 14:50 by Makenna Elise CMA) Household Members: Significant Other Housing: Apartment Are you a primary memory care program resident to a significant other at home: No Do you presently have visiting nurse or other home services: No 75 years or older and lives alone: No Alcohol intake: current Alcohol intake frequency: holidays/special occasions only Patient Tobacco Use Status: Never used Tobacco e-Cigarette/Vaping Use: Former Use Substance Use Type: Marijuana service: No Current occupational status: employed Current occupation: [employer] Current occupational exposures/hazards: No Sexual orientation: Straight/Heterosexual Gender identity: Male Cognitive needs: No Hearing needs: No Vision needs: Yes Assessment & Plan Assessment & Plan (1) Underweight: Code(s): R63.6 - Underweight Category: Medical Plan: Continue working on having 3 meals a day. Today will discuss variety in snack choices. Pt contemplating exercising goal > 400 calories per day to promote gradual weight gain . Goal : having 3 meals and 3 snacks throughout the day , working on not skipping meals, continue Choose nutrient dense beverages : 100% fruit juices, whole milk, smoothies - include variety of snacks est prot needs: 81 g (min , 1.2g/kg bw) Recommend fiber intake : 8-10 g per day and gradually increase to 25-28 g per day for women and 35-38 g for men or as tolerate, increasing fluids to prevent constipation Recommend sodium intake per day : less than 1500 mg less than 2000 mg Educated patient on: ( R = reviewed V = verbalizes understanding N/R = needs review N/A = not applicable * Food sources of carbohydrate, adequate serving sizes and its role in various health conditions: R V N/R * Differences between complex carbohydrates a simple carbohydrates, role of fiber in diet: R V N/R * Lean protein sources of foods: R V NR * Differences between types of fats and role in diet (mono on saturated fat fatty acids, saturated fatty acids, trans fats): R V N/R * Food sources of sodium in salt and healthy modifications for heart health in kidney health: R V R/V * Vitamins and minerals: R V N/R * Healthy plate method concept: R V N/R * Physical activity: Benefits a precaution: R V N/R * Hypoglycemia protocol (rule of 15): R V N/R * Dietary prevention of Hyperglycemia: R V R/V Patient Instructions: Continue having 3 meals per day without skipping Include snacks : pretzels peanut butter, chips with hummus , cereal mixed with nuts /dried fruits /trail mix - see list of ideas for snacks to have in between meals Consider going for walks/bike riding at least once a week for relaxation Coding Level of Care Code Nutr Indiv Subseq (39492) Diagnoses Underweight R63.6 Time Spent (min) 25
== END 2023-08-09 08:54 | disposition home or self-care (01) ==
PROVIDERS: PCP Nurse Practitioner Family; Visit Provider Dietitian, Registered
DX: R63.6 Underweight (principal)

== ENCOUNTER → 2023-08-09 08:27 | Outpatient (BNVA) | payer OTHER, SELFPAY | PROVIDERS: PCP Nurse Practitioner Family; Visit Provider Dietitian, Registered | DX: R63.6 Underweight (principal); Z68.1 Body mass index [BMI] 19.9 or less, adult; Z71.3 Dietary counseling and surveillance | CPT/HCPCS: 97803 ==

== ENCOUNTER 2023-08-27 08:07 | Outpatient (AMB) | payer OTHER, SELFPAY ==
--- NOTE | 2023-08-27 08:11 | AM.OFFWIN_ITS ---
Intake Vital Signs 08/27/23 08:13 Height 6 ft 3 in Weight 150 lb 6 oz BMI 18.8 BP 108/66 Blood Pressure Location Lt brachial Position Sitting Pulse 69 Pulse Source Pulse Oximeter Temp 98.2 F Temp Source Oral Pulse Oximetry (%) 98 Oxygen Delivery Method Room Air Intake Visit Reasons: Trouble with Big toes Intake Note: ingrown toe nail on big toe. Left side is infected and painful Patient Tobacco Use Status: Never used Tobacco Allergies NSAIDS (Non-Steroidal Anti-Inflamma Allergy (Mild, Verified 08/27/23 08:23) Agitated Medication List - Last Reconciled 08/27/23 by Kirti Tejeda, SORAYA-BC cholecalciferol (vitamin D3) 25 mcg PO DAILY sertraline 50 mg PO DAILY HPI HPI Comments History of Present Illness Details Here today with concern about ingrown toenails bilat. He reports that the skin around the nail edges are swollen and painful and red. This has been ongoing for some time but he thought that he could treat this at home by using hydrogen peroxide and a and D. The left toe is worse on the right. Also admits that the toenails are yellow. Exam Onychomycosis bilat great toenails, paronychia bilat great toes worse on the left great toe Plan Cephalexin 500 mg p.o. b.i.d. to treat the paronychia, referral to Podiatry for the onychomycosis. Terbinafine cream sent in to use in the meantime. Okay for home remedies such as white vinegar, Tea tree oil and Vicks. [facility] Medical History (Updated 08/02/23 @ 09:19 by SORAYA Thakur-MELISSA) TOMASZ (generalized anxiety disorder) MDD (major depressive disorder), recurrent episode Surgical History (Updated 04/30/23 @ 15:04 by SORAYA Thakur-MELISSA) History of nephrectomy, right Family History (Updated 07/29/23 @ 10:02 by ARMIN Bae) Father Throat cancer Cardiovascular disease Paternal Grandmother Hypertension Diabetes Maternal Grandfather A-fib Social History (Updated 06/11/23 @ 14:50 by Makenna Elise CMA) Household Members: Significant Other Housing: Apartment Are you a primary post acute care nurse practitioner to a significant other at home: No Do you presently have visiting nurse or other home services: No 75 years or older and lives alone: No Alcohol intake: current Alcohol intake frequency: holidays/special occasions only Patient Tobacco Use Status: Never used Tobacco e-Cigarette/Vaping Use: Former Use Substance Use Type: Marijuana service: No Current occupational status: employed Current occupation: [employer] Current occupational exposures/hazards: No Sexual orientation: Straight/Heterosexual Gender identity: Male Cognitive needs: No Hearing needs: No Vision needs: Yes Physical Exam Vital Signs: Last Vital Signs Temp 98.2 F 08/27/23 08:13 Pulse 69 08/27/23 08:13 BP 108/66 08/27/23 08:13 Pulse Ox 98 08/27/23 08:13 Oxygen Delivery Method Room Air 08/27/23 08:13 BMI result Body Mass Index 18.8 Assessment & Plan Assessment & Plan (1) Paronychia of toe of both feet: Code(s): L03.031 - Cellulitis of right toe; L03.032 - Cellulitis of left toe Plan: .. (2) Onychomycosis: Code(s): B35.1 - Tinea unguium Plan: . Plan . Orders: Referrals Podiatry Referral B35.1 - Tinea unguium, L03.031 - Cellulitis of right toe, L03.032 - Cellulitis of left toe Medications: New terbinafine HCl 1% (Antifungal (terbinafine)) 1 appl topical BID 30 grams 12RF terbinafine HCl 1% (Antifungal (terbinafine)) 1 appl topical BID 30 grams 12RF cephalexin 500 mg PO Q12H 10 days 20 caps 0RF Patient Instructions: white vinegar and water soaks at least daily apply tea tree oil or vicks vapor rub to toe nails at bedtime ff'd by socks Keep feet clean and dry Coding Level of Care Code Est Pt Level 3 (72151) Diagnoses Paronychia of toe of both feet L03.031; L03.032 Onychomycosis B35.1
[2023-08-27 08:13] VITALS: BP 108/66; PULSE 69; TEMP 36.8; O2SAT 98; BMI 18.8
== END 2023-08-27 08:30 | disposition home or self-care (01) ==
PROVIDERS: PCP Nurse Practitioner Family; Visit Provider Nurse Practitioner Family
DX: L03.031 Cellulitis of right toe (principal); L03.032 Cellulitis of left toe; B35.1 Tinea unguium
CPT/HCPCS: 99213

== ENCOUNTER 2023-09-13 12:29 | Outpatient (AMB) | payer OTHER, SELFPAY ==
--- NOTE | 2023-09-13 12:41 | A.OFFPC_ITS ---
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 Since last office visit he was evaluated by Podiatry who removed the great toenail on the left. He was then started on Augmentin for paronychia. Reports he did not have any improvement with the Keflex. He had a toenail removed this morning. Feels the procedure went well. He will follow up with them as directed. Generalized anxiety disorder: Admits that he was not taking sertraline 50 mg as directed. He lost the bottle. Then when he got back he was not taking every day. He felt that his started this medication exam was creating the most anxiety for him. His girlfriend is present today reports that he has daily anxiety despite this. He restarted to take the 50 mg 3 weeks ago, is taking daily. He would like to stay on the 50 mg dose at this time. 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 Excessive sweating. He reports that this has been a lifelong struggle. Affecting only his armpits bilat. He feels like it is worse over the last 4 months. Wonders if stress was related. However does not think this is related at all. Discuss with him this being a side effect of sertraline. However he does not feel like this is related at all. Discuss the different treatment options of hyperhidrosis which include wipes or referral to dermatology for treatment such as Botox. At this time he would like to start with the wipes. He does not want to come off the sertraline. He was able to use the Debrox in both ears. Successful lavage performed today. He had a Holter monitor done to evaluate tachycardia that was noted on his sleep study. The Holter monitor showed the following : 07/2023 holter * Total monitoring time 1 day. * Underlying rhythm is sinus. Average ventricular rate 73/Min. * No significant ectopy, lydia or tachyarrhythmias. * No significant pauses or AV blocks. * No patient markers or diary events. * Finally he had labs done 07/26/2023 of which were within normal limits. Plan: Continue care with Podiatry as directed. Continue sertraline 50 mg p.o. daily as directed. Do not miss any doses. Start Qbrexya wipes to help hyperhidrosis. If this is unsuccessful, please let me know and we can refer to dermatology at that time for further evaluation and treatment. No further follow up for his labs were his Holter monitor as these were normal. Successful lavage bilat ears performed today. Return to the office in about 4-6 months for routine follow up of chronic conditions. Sooner if needed. This note is constructed using voice recognition software. While every effort has been made to ensure accuracy in route service representative, still errors may have been included Sometimes, these errors may affect the content or meaning of the given sentence . [facility] Medical History (Updated 09/13/23 @ 15:02 by CAROL Thakur) TOMASZ (generalized anxiety disorder) MDD (major depressive disorder), recurrent episode Surgical History (Updated 04/30/23 @ 15:04 by CAROL Thakur) History of nephrectomy, right Family History (Updated 07/29/23 @ 10:02 by Seda Samuels [facility]) Father Throat cancer Cardiovascular disease Paternal Grandmother Hypertension Diabetes Maternal Grandfather A-fib Social History (Updated 06/11/23 @ 14:50 by Makenna Elise CMA) Household Members: Significant Other Housing: Apartment Are you a primary child day care center worker to a significant other at home: No Do you presently have visiting nurse or other home services: No 75 years or older and lives alone: No Alcohol intake: current Alcohol intake frequency: holidays/special occasions only Patient Tobacco Use Status: Never used Tobacco e-Cigarette/Vaping Use: Former Use Substance Use Type: Marijuana service: No Current occupational status: employed Current occupation: [employer] Current occupational exposures/hazards: No Sexual orientation: Straight/Heterosexual Gender identity: Male Cognitive needs: No Hearing needs: No Vision needs: Yes Questionnaire PHQ-9 Over the last 2 weeks, how often have you been bothered by any of the following problems? Depression Screening Interpretation: Positive Depression Screening Follow-up: Existing condition and In treatment Depression Screening Done: Yes Source: Developed by Drs. Oumar Bauer, Grace Smith, Noé García and colleagues, with an educational suzan from [employer]. Thrive Questionnaire Date Thrive assessed: 04/30/23 TOMASZ-7 AMB Questionnaire TOMASZ-7 Date TOMASZ - 7 assessed: 07/26/23 Source: Developed by Drs. Oumar Bauer, Grace Smith, Noé García and colleagues, with an educational suzan from [employer]. Physical exam (Primary Care) Vital Signs: Last Vital Signs Pulse 66 09/13/23 12:43 Resp 16 09/13/23 12:43 BP 98/68 09/13/23 12:43 Pulse Ox 98 09/13/23 12:43 Oxygen Delivery Method Room Air 09/13/23 12:43 BMI result Body Mass Index 19.0 Tobacco/Smoking Status: Tobacco use Status Tobacco use date assessed 07/26/23 09/13/23 12:42 Patient Tobacco Use Status Never used Tobacco 09/13/23 12:42 e-Cigarette/Vaping Use Former Use 09/13/23 12:42 Depression Screening Interpretation: Positive Depression Screening Follow-up: Existing condition and In treatment Thrive Assessment: Date of Thrive Assessment Date Thrive assessed 04/30/23 09/13/23 12:42 Const Other: General: Well developed, well nourished, in no acute distress. Appears stated age. Ears: TM intact and clear bilat s/p lavage Lungs: Clear to auscultation bilaterally. No rales, rhonchi or wheeze noted. Good air flow in all tabor. Heart: Regular rate and rhythm. No murmurs, click, rubs or gallops are noted. . Musculoskeletal: Joints are nontender, without swelling, redness, or effusions. Range of motion is observed to be normal. marfanoid habitus, intact dressing left great toe Psych: Normal eye contact, affect and mood appropriate, and normal interactions. Patient is alert and appropriate to context. mildly anxious, very polite Office Procedures Cerumen Removal From which ear canal was the cerumen removed: bilateral Removal: irrigation Notes: patient tolerated procedure well, no complications and ear canal clear [id number] Irrigation/Lavage Assessment and Plan Assessment & Plan (1) Tachycardia: Comment: resolved. normal holter and labs Code(s): R00.0 - Tachycardia, unspecified (2) Impacted cerumen, bilateral: Comment: resolved Code(s): H61.23 - Impacted cerumen, bilateral (3) TOMASZ (generalized anxiety disorder): Comment: Referred to counseling - no appt yet cont sertraline 50mg QD Code(s): F41.1 - Generalized anxiety disorder (4) Vitamin D deficiency: Comment: normal vit d level on current supplement cont Code(s): E55.9 - Vitamin D deficiency, unspecified Medications: New glycopyrronium tosylate 2.4% (Qbrexza) 1 towel topical Q24H 30 ea 3RF Refilled sertraline 50 mg PO DAILY 30 tabs 1RF Coding Level of Care Code Est Pt Level 4 (42969) Complex EM visit Add On G2211 Diagnoses Tachycardia R00.0 Impacted cerumen, bilateral H61.23 TOMASZ (generalized anxiety disorder) F41.1 Vitamin D deficiency E55.9 CPT Codes Office Procedure - CPT: 76208-Lzw Irrigation/Lavage ([id number])
[2023-09-13 12:43] VITALS: BP 98/68; PULSE 66; RESP 16; O2SAT 98; BMI 19.0
== END 2023-09-13 13:21 | disposition home or self-care (01) ==
PROVIDERS: PCP Nurse Practitioner Family; Visit Provider Nurse Practitioner Family
DX: R00.0 Tachycardia, unspecified (principal); F41.1 Generalized anxiety disorder; E55.9 Vitamin D deficiency, unspecified; H61.23 Impacted cerumen, bilateral
CPT/HCPCS: 69209; 99214

== ENCOUNTER 2024-07-27 12:51 | Outpatient (AMB) | payer OTHER, SELFPAY ==
--- NOTE | 2024-07-27 12:53 | MHC.PC.OV ---
Vital Signs 07/27/24 12:57 Height 6 ft 3 in Weight 160 lb BMI 20.0 BP 132/70 Blood Pressure Location Rt brachial Position Sitting Respiration 12 Pulse 60 Pulse Source Pulse Oximeter Temp 97.8 F Temp Source Oral Pulse Oximetry (%) 99 Oxygen Delivery Method Room Air Intake Visit Reasons: Severe headache on left side at least once a wk Intake Note: Patient c/o left side headaches, light sensitivity, and left side face pressure x 2 months. Cotton Classer Required: No Allergies NSAIDS (Non-Steroidal Anti-Inflamma Allergy (Mild, Verified 07/27/24 13:06) Agitated Medication List - Last Reconciled 07/27/24 by SORAYA Thakur- No Known Home Meds Tobacco use date assessed: 07/27/24 Dental Screening Dental Screen Date: 07/27/24 Did you have a dental visit in the last 12 months?: Yes Did you have a dental problem in the last 6 months where you did not have access to dental care?: No Was dental information given to patient?: Patient has dentist HPI HPI Comments History of Present Illness Details 23-year-old male with CKD2, hydronephrosis of the left kidney status post nephrectomy for nonfunctioning right kidney in 2001, 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 -Started about two months ago, unilateral, left side, starting behind the eye, radiating to the back of the head. - Pain severity rated 8-9/10. - Headaches occurring about 1-2 times weekly, lasting several hours. - Significant light sensitivity reported, persisting even in dark conditions. - No accompanying nausea, vomiting, drooping of eyelids, neck pain, or weakness. - Tylenol used for limited relief. - NSAIDs not recommended due to kidney health concerns. - Possible trigger: skipping meals. - No aura or pre-migraine symptoms noted. - Mom has migraines - UTD on eye exam - had one done since onset of headaches. Noncontributory. TOMASZ/MDD well controlled; off sertraline; got a kitten; likes his job CKD 2 avoid nephrotoxic agents. Review of Systems - Head: Reports headaches, light sensitivity. - Eyes: Denies vision loss, drooping, aura. Does have tearing of L eye with headaches. - Ears: Denies ear pain; presents with wax buildup. - Neurological: Reports no aura, no dizziness. - Gastrointestinal: Denies nausea, vomiting. - General: Denies fever, chills, weakness. - Musculoskeletal: Denies neck pain, trauma. Exam General: Well developed, well nourished, in no acute distress. Appears stated age. Head: Normocephalic, atraumatic Eyes: PERRLA, EOMI, No nystagus, no lid lag, mild conjunctival injection, no drainage, no photophobia Ears: cerumen imp bilat Lungs: Clear to auscultation bilaterally. No rales, rhonchi or wheeze noted. Good air flow in all tabor. Heart: Regular rate and rhythm. No murmurs, click, rubs or gallops are noted. . Musculoskeletal: Joints are nontender, without swelling, redness, or effusions. Range of motion is observed to be normal. marfanoid habitus Neuro: Grossly normal exam, PICHARDO x 4, normal strength, tone, reflexes, CN intact, Ext vasc intact, negative rhomberg, normal AUTUMN Psych: Normal eye contact, affect and mood appropriate, and normal interactions. Patient is alert and appropriate to context. mildly anxious, very polite Discussion Notes I discussed with the patient that his symptoms are consistent with migraine headaches, likely to be migraine with aura given his light sensitivity and severity of symptoms. I explained the nature of migraines and how they occur. The benefits of magnesium and riboflavin as preventative measures were discussed, noting that these supplements could potentially reduce headache frequency and severity. Imitrex (sumatriptan) was recommended as an abortive measure to treat the migraine at its onset. I informed the patient that this medication might induce sensations like flushing, which are normal and not indicative of a serious problem. We talked about insurance limits on this medication and the importance of filling it regularly to maintain supply. Possible seasonal allergies were briefly discussed, suggesting a trial of Zyrtec or Benadryl if needed, considering his past usage of antihistamines. Follow-up was planned to reassess the effectiveness of this management plan and make necessary adjustments. Assessment and Plan 1. Migraine with aura - Magnesium 400 mg and riboflavin 400 mg daily as preventive. - Sumatriptan provided for abortive use at headache onset. - Monitor effectiveness and side effects, follow-up scheduled. - Address possible dietary triggers. - Consider Zyrtec or Benadryl for allergies. 2. Light sensitivity - Managed as part of migraine strategy. Patient Instructions - Take magnesium and riboflavin daily at bedtime to help reduce headaches. - Use sumatriptan when you first notice a headache starting. - Pay attention to your diet and make sure you're eating regular meals to help avoid headaches. - Try allergy medications like Zyrtec or Benadryl if you think your headaches might be related to allergies. - Keep track of how often your headaches happen and any other symptoms to share at your next appointment. Consent Patient was informed and verbally consented to the use of an ambient scribe for clinic note documentation during this visit. Total time spent caring for the patient today was 40 minutes. This includes time spent before the visit reviewing the chart, time spent during the visit, and time spent after the visit on documentation, reviewing laboratory results, diagnostic imaging, medications, performing a medically necessary evaluation, counseling on diagnoses, care coordination, ordering appropriate tests, ordering appropriate medications, review of tests performed by other providers, reporting test results with the patient, communication with other healthcare providers. [facility] Medical History (Updated 07/27/24 @ 17:35 by SORAYA Thakur-MELISSA) TOMASZ (generalized anxiety disorder) MDD (major depressive disorder), recurrent episode Surgical History (Updated 04/30/23 @ 15:04 by SORAYA Thakur-MELISSA) History of nephrectomy, right Family History (Updated 07/29/23 @ 10:02 by Seda Samuels [facility] [place]) Father Throat cancer Cardiovascular disease Paternal Grandmother Hypertension Diabetes Maternal Grandfather A-fib Social History (Updated 06/11/23 @ 14:50 by Makenna Elise CMA) Household Members: Significant Other Housing: Apartment Are you a primary care assistant to a significant other at home: No Do you presently have visiting nurse or other home services: No 75 years or older and lives alone: No Alcohol intake: current Alcohol intake frequency: holidays/special occasions only Patient Tobacco Use Status: Never used Tobacco e-Cigarette/Vaping Use: Former Use Substance Use Type: Marijuana service: No Current occupational status: employed Current occupation: [employer] Current occupational exposures/hazards: No Sexual orientation: Straight/Heterosexual Gender identity: Male Cognitive needs: No Hearing needs: No Vision needs: Yes Questionnaire Thrive Questionnaire Date Thrive assessed: 07/23/24 I am a: Patient What is your living situation today?: I have a steady place to live Within the past 12 months, did the food you bought not last and you didn't have the money to get more?: I choose not to answer this question Within the past 12 months, did you worry whether your food would run out before you got money to buy more?: I choose not to answer this question Do you have trouble paying for medicines?: No Do you have trouble getting transportation to medical appointments?: No Do you have trouble paying your heating and electricity bill?: No Do you have trouble taking care of your child, family member or friend?: No Do you have trouble with day-to-day activities such as bathing, preparing meals, shopping, managing finances, etc.?: No Are you currently unemployed and looking for a job?: No Are you interested in more education?: No Please select the resources that you would like help with: None Currently or been in a relationship where the following occur: No concerns reported THRIVE Score: 0 AUDIT C Alcohol Use Questionnaire (AUDIT-C) 1. How often do you have a drink containing alcohol?: Monthly or less 2. How many drinks containing alcohol do you have on a typical day when you are drinking?: 1 or 2 3. How often do you have six or more drinks on one occasion?: Never Total Score: 1 TOMASZ-7 AMB Questionnaire TOMASZ-7 Date TOMASZ - 7 assessed: 07/26/23 Feeling nervous, anxious, or on edge: 1 = Several days Not being able to stop or control worryin = Not at all Worrying too much about different things: 0 = Not at all Trouble relaxin = Not at all Being so restless that it is hard to sit still: 0 = Not at all Becoming easily annoyed or irritable: 1 = Several days Feeling afraid as if something awful might happen: 0 = Not at all Total TOMASZ-7 score (0-4 normal; 5-9 mild; 10-14 moderate; 15-21 severe): 2 Source: Developed by Drs. Oumar Bauer, Grace Smith, Noé García and colleagues, with an educational suzan from [employer]. Physical exam (Primary Care) Vital Signs: Last Vital Signs Temp 97.8 F 07/27/24 12:57 Pulse 60 07/27/24 12:57 Resp 12 07/27/24 12:57 BP 132/70 07/27/24 12:57 Pulse Ox 99 07/27/24 12:57 Oxygen Delivery Method Room Air 07/27/24 12:57 BMI result Body Mass Index 20.0 Tobacco/Smoking Status: Tobacco use Status Tobacco use date assessed 07/27/24 07/27/24 12:59 Patient Tobacco Use Status Never used Tobacco 07/27/24 12:59 e-Cigarette/Vaping Use Former Use 07/27/24 12:59 Thrive Assessment: Date of Thrive Assessment Date Thrive assessed 07/23/24 07/27/24 12:59 Currently or been in a relationship where the following occur: No concerns reported Const Other: General: Well developed, well nourished, in no acute distress. Appears stated age. Ears: TM intact and clear bilat s/p lavage Lungs: Clear to auscultation bilaterally. No rales, rhonchi or wheeze noted. Good air flow in all tabor. Heart: Regular rate and rhythm. No murmurs, click, rubs or gallops are noted. . Musculoskeletal: Joints are nontender, without swelling, redness, or effusions. Range of motion is observed to be normal. marfanoid habitus, intact dressing left great toe Psych: Normal eye contact, affect and mood appropriate, and normal interactions. Patient is alert and appropriate to context. mildly anxious, very polite Coding Level of Care Code Est Pt Level 5 (48323) Complex EM visit Add On G2211 Diagnoses Migraine without aura and without status migrainosus, not intractable G43.009 Status migrainosus presence: without status migrainosus Intractability: not intractable Mild episode of recurrent major depressive disorder F33.0 Major depression episode severity: mild Marfanoid habitus R29.91 TOMASZ (generalized anxiety disorder) F41.1 Assessment & Plan Assessment & Plan (1) Migraine headache without aura: Code(s): G43.009 - Migraine without aura, not intractable, without status migrainosus Category: Medical Qualifiers: Status migrainosus presence: without status migrainosus Intractability: not intractable Qualified Code(s): G43.009 - Migraine without aura, not intractable, without status migrainosus (2) MDD (major depressive disorder), recurrent episode: Comment: see TOMASZ Code(s): F33.9 - Major depressive disorder, recurrent, unspecified Category: Medical Qualifiers: Major depression episode severity: mild Qualified Code(s): F33.0 - Major depressive disorder, recurrent, mild (3) Marfanoid habitus: Comment: malar hypoplasia, enophthalmos, downward slanting palpebral fissures, positive wrist and thumb sign, scoliosis. Echocardiogram within normal limits in 2018. reports no longer requires cards f/u or Echo. active w chiro for c/o chronic neck, back, shoulder pain Code(s): R29.91 - Unspecified symptoms and signs involving the musculoskeletal system Category: Medical (4) TOMASZ (generalized anxiety disorder): Comment: Referred to counseling - in past was on sertraline 50mg QD Code(s): F41.1 - Generalized anxiety disorder Category: Medical Plan . Medications: New riboflavin (vitamin B2) 400 mg PO DAILY 90 tabs 2RF magnesium 400 mg (2 x 200 mg) PO DAILY 180 tabs 2RF sumatriptan succinate (Imitrex) take 1 tab at onset of headache; if no relief may repeat 1 tab after at least 2 hrs; max = 4 tabs/24 hr PO 7 tabs 4RF Patient Instructions: Is there anything I can do to feel better when I have a headache? .... Yes. Some people feel better if they: -----Lie down in a cool, dark, quiet room (this works best for migraine headaches) ------Take non-prescription pain medicines (but check with your doctor before taking any new medicines if you have a health condition or already take prescription medicines) ____Is there anything I can do to keep from getting headaches? Yes....... Some people find that their headaches are triggered by certain foods or things they do. To keep from getting headaches in the future, you can keep a _ headache calendar. _ In the calendar, write down every time you have a headache and what you ate and did before it started. That way you can find out if there is anything you should avoid eating or doing. You can also write down what medicine you took for the headache and whether or not it helped. ___Some common headache triggers include: ....Stress .....Skipping meals or eating too little ....Having too little or too much caffeine ....Sleeping too much or too little .....Drinking alcohol ....Certain drinks or foods, such as red wine, aged cheese, and hot dogs Patient Instructions - Take magnesium and riboflavin daily at bedtime to help reduce headaches. - Use sumatriptan when you first notice a headache starting. - Pay attention to your diet and make sure you're eating regular meals to help avoid headaches. - Try allergy medications like Zyrtec or Benadryl if you think your headaches might be related to allergies. - Keep track of how often your headaches happen and any other symptoms to share at your next appointment.
[2024-07-27 12:57] VITALS: BP 132/70; PULSE 60; RESP 12; TEMP 36.6; O2SAT 99
--- OUTSIDE RECORDS SUMMARY | 2024-07-27 14:51 | XMS_ITS | Clinical Summary ---
Author Organization [facility] Address [address] [place] [address] Phone Care Team Providers Care Church Administrator Name Role Phone Kylee Kirti LIRA Primary Care Provider Allergies No known active allergies Medications No known medications Active Problems Problem Noted Date Diagnosed Date Obstructive nephropathy 03/08/2024 Vesicoureteric reflux 03/08/2024 Marfanoid facies 03/08/2024 S/P nephrectomy 06/27/2020 Chronic renal failure 06/27/2020 Depressive disorder 08/03/2019 Overview (06/27/2020): 08/04 Last Assessment & Plan: Continue fluoxetine 10 mg. Recheck on 09/04. Consider increase at that time if not seeing positives. Marfanoid physique 08/03/2019 Overview (06/27/2020): malar hypoplasia, enophthlmos, dowrward slanting palperbral fissures, + wrist and thumb sign, scoiliosis, Echo normal Seen by Dr Prakash in 05/2017, age 16. Asked him to reurn in 2 years for a f/u and recheck of echo Last Assessment & Plan: Discussed with Kash and Mom. Gave mom Dr Prakash phone number. She will call to schedule a recheck for Kash. 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 L vesicouereteral reflux and post ureteral valve. Valve fulguration as and L reimplantation in 2001 and again 2002. 12/2013: visit with loan servicing officer - last US 2012 F/u with nephology 09/14/19 - labs and US planned. 12/04, labs and US done and okay. Will need regular monitoring of renal function - plan for face to face meeting in 3 months 03/07: Labs c/w CRF stage 2. Will need continued follow up. Recheck 4 months Last Assessment & Plan: Kash needs to have regular monitoring of his remaining kidney. Will check UA today and will add on culture given his complaint of intermittent uretherall pain. Will make referral to [facility] to re-establish monitoring. Staff will need to call to arrange. He will let me know if he has any return of pain. Immunizations Immunization Administration Dates Next Due DTaP 12/21/2004, 3,05/20/2001,03/21,01/17/2001 HPV, Unspecified 04/14/2017,02/01/2015 Hep A, 2 Dose 08/17/2019,04/14/2017 Hep B, Adolescent or Pediatric 05/22/2002,2001,2000 Hib (PRP-T) 03/02/2002, 2,03/21/2001,01/17 IPV 12/16/2004, 2,03/21/2001,01/17 Influenza, Quadrivalent, Wit h Preservative 11/20/2011 MMR 12/12/2003,11/21/2001 Meningococcal MCV4P 04/14/2017,11/20/2011 Pneumococcal Conjugate 05/23/2001,03/21/2001,04/2000 Tdap 11/20/2011 Varicella 12/12/2013,11/21/2001 Family History Medical History Relation Comments Cancer Father Kidney disease Father Kidney stones Diabetes Paternal Grandmother Heart disease Paternal Grandmother Hypertension Paternal Grandmother Relation Status Comments Father Alive Mother Alive Paternal Grandmother Social History Tobacco Use Types Packs/Day Years Used Date Smoking Tobacco: Never Smokeless Tobacco: Never Tobacco Cessation:Counseling Given: Not Answered Alcohol Use Standard Drinks/Week Comments No 0 (1 standard drink = 0.6 oz pur e alcohol) Sex and Gender Information Value Date Recorded Sex Assigned at Not on file Legal Sex Male 5:22 PM EST Gender Identity Not on file Sexual Orientation Not on file Last Filed Vital Signs Vital Sign Reading Time Taken Comments Blood Pressure 128/80 03/09/2024 9:03 AM EST Pulse 70 03/09/2024 9:03 AM EST Temperature - - Respiratory Rate - - Oxygen Saturation 98% 03/09/2024 9:03 AM EST Inhaled Oxygen Concentration - - Weight 70.2 kg (154 lb 12.8 oz) 03/09/2024 9:03 AM EST Height 188 cm (6' 2 ) 10/15/2022 9:52 AM EDT Body Mass Index 19.88 10/15/2022 9:52 AM EDT Plan of Treatment Upcoming Encounters Date Type Department Care Team (Late st Contact Info) Description 09/04/2024 9:20 AM EDT Office Visit [facility] [address] [address] Raphael Mariee MD [address] [address] Health Maintenance Due Date Last Done Comments Pneumococcal Vaccine: Peds ( 0 to 5 Years) and At-Risk Patients (6 to 49 Years) (1 of 2 - PCV) 11/19/2019 05/23/2001, 03/21/2001, 01/17/2001 Influenza Vaccine (Season Ended) 2024 11/20/19 12 Pneumococcal Vaccine: 50+ Years Discontinued 05/23/2001, 03/21/2001, 01/17/2001 Hepatitis B Vaccine Completed 05/22/2002, 08/30/2001, [address] [place] [id number] [facility] ([id number]) [facility] ([id number]) Care Teams Church Administrator Relationship Specialty Start Date End Date Kirti Pichardo FNP [address] [place] [id number] PCP - General Nurse Practitioner 03/09/24
== END 2024-07-27 13:24 | disposition home or self-care (01) ==
LOC: HO.HMCFM 12:52
PROVIDERS: PCP Nurse Practitioner Family; Visit Provider Nurse Practitioner Family
DX: G43.009 Migraine without aura, not intractable, without status migrainosus (principal); F33.0 Major depressive disorder, recurrent, mild; R29.91 Unspecified symptoms and signs involving the musculoskeletal system; F41.1 Generalized anxiety disorder

== ENCOUNTER → 2024-07-27 12:51 | Outpatient (BNVA) | payer OTHER, SELFPAY | PROVIDERS: PCP Nurse Practitioner Family; Visit Provider Nurse Practitioner Family ==

== ENCOUNTER 2024-08-30 08:25 | Outpatient (AMB) | payer OTHER, SELFPAY ==
--- NOTE | 2024-08-30 08:27 | MHC.PC.OV ---
Vital Signs 08/30/24 08:32 Height 6 ft 3 in Weight 161 lb 8 oz BMI 20.2 BP 124/70 Blood Pressure Location Rt brachial Position Sitting Respiration 12 Pulse 63 Pulse Source Pulse Oximeter Temp 97.2 F Temp Source Oral Pulse Oximetry (%) 100 Oxygen Delivery Method Room Air Intake Visit Reasons: 6-8 weeks 30 min migraine fu Intake Note: Follow up on migraines. Patient reported only 3 migraines since the last time he was seen but says magnesium has been helping. 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: No Allergies NSAIDS (Non-Steroidal Anti-Inflamma Allergy (Mild, Verified 08/30/24 08:54) Agitated Medication List - Last Reconciled 08/30/24 by Kirti Tejeda, HEM MARKER- magnesium 400 mg (2 x 200 mg) PO DAILY riboflavin (vitamin B2) 400 mg PO DAILY sumatriptan succinate (Imitrex) take 1 tab at onset of headache; if no relief may repeat 1 tab after at least 2 hrs; max = 4 tabs/24 hr PO Tobacco use date assessed: 08/30/24 Dental Screening Dental Screen Date: 08/30/24 Did you have a dental visit in the last 12 months?: Yes Did you have a dental problem in the last 6 months where you did not have access to dental care?: No Was dental information given to patient?: Patient has dentist HPI HPI Comments History of Present Illness Details 23-year-old male with CKD2, hydronephrosis of the left kidney status post nephrectomy for nonfunctioning right kidney in 2001, 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 - Major Depressive Disorder: Improved with the aid of a kitten. - Asthma: Controlled, no issues reported. - Generalized Anxiety Disorder: Improved with the aid of a kitten. - Migraine Headaches: Reduced frequency and severity. Magnesium effective. Discontinued sumatriptan due to adverse effects. - CKD 2 managed by Renal - Seasonal allergies, wonders what he can take Family History - Maternal grandfather diagnosed with acute myeloid leukemia, currently under care. 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 Currently working 40 hours with potential for overtime. - Nutrition and Weight: Reports recent weight gain. - Pet ownership: Caring for a kitten, which positively influences anxiety and depression. Health Maintenance - Tetanus vaccination was declined; last received in 2011. Review of Systems - General: Denies current symptoms. - Neurologic: Reports improved migraine headaches. - Respiratory: Denies asthma-related symptoms. - Psychological: Reports improvement in anxiety and depression. - Skin has toe nail fungus and ingrown nail issues Physical Exam General: Well developed, well nourished, in no acute distress. Appears stated age. Marfanoid body habitus Head: Normocephalic, atraumatic. Eyes: Pupils are equal, round and reactive to light and accommodation. Conjunctivae are clear. Vision grossly normal. Ears: Cerumen impaction bilat, declined lavage @ this time. Nose: Pale and swollen turbinates noted, likely due to allergies. Neck: Supple, no adenopathy or thyromegaly. Breast: Edu on SBE Lungs: Clear to auscultation bilaterally. No rales, rhonchi or wheeze noted. Good air flow in all tabor. Heart: Regular rate and rhythm. No murmurs, click, rubs or gallops are noted. Abdomen: Bowel sounds present in all quadrants. The abdomen is soft, nontender, with no masses or organomegaly noted. No hernias are noted. : Deferred. Reviewed MARCELLO & recommendations Pulses: Peripheral pulses are equal and palpable bilaterally. Extremities: No clubbing, cyanosis nor edema is noted. L toe nail w/ abnormal nail regrowth; R toe nail thickened and fungal, erythema and pain @ cuticle; L 2nd toe nail w/ red/pink area subungal. Neurologic: Gait and station normal. Cranial Nerves 2-12 intact. Motor strength grossly symmetrical and intact. No sensory loss. Balance normal. Skin: No rashes, ulcers, or lesions noted. Turgor is good. Skin color is good. Hair and nails are without abnormalities. Psych: Normal eye contact, affect and mood appropriate, and normal interactions. Patient is alert and appropriate to context. Results - Labs: 07/2023 WNL Discussion Notes I discussed with the patient the discontinuation of sumatriptan due to adverse effects experienced with its use. We explored feverfew as an alternative option for abortive management of migraines, including risks, benefits, and availability options. For asthma management, the patient should monitor symptoms and use ungn-zne-meymcgs options like Zyrtec for allergy control, if necessary. I advised the patient on making informed decisions regarding various interventions and maintaining regular follow-up appointments, particularly for the toenail condition. We discussed the plan for ongoing management of depression and anxiety, which has shown improvement with pet therapy. The patient understands the importance of health maintenance and follow-up. Assessment and Plan 1. Health Maintenance: declined tdap 2. Major Depressive Disorder/TOMASZ - Improved with pet therapy. 3. Asthma - Controlled. - Continue monitoring. 4. CKD 2 cont care w/ renal. 5. Migraine Headaches - Continue magnesium and riboflavin. - Discontinued sumatriptan. - Consider feverfew for acute management. 6. Toenail Abnormality - Podiatry referral. 7. Cerumen impaction, use debrox OTC Patient Instructions - Continue magnesium and riboflavin for migraines. - Use feverfew for migraines as needed. - Monitor asthma symptoms; use Zyrtec if experiencing allergies. - Schedule an appointment with podiatry as discussed. - Follow up in one year for CPE or as needed. Consent Patient was informed and verbally consented to the use of an ambient scribe for clinic note documentation during this visit. An additional 20 minutes was spent addressing the problem(s) noted at todays visit. This includes time spent before the visit reviewing the chart, time spent during the visit, and time spent after the visit on documentation reviewing laboratory results, diagnostic imaging, medications, performing a medically necessary evaluation, counseling on diagnoses, care coordination, ordering appropriate tests, ordering appropriate medications, review of tests performed by other providers, reporting test results with the patient, communication with other healthcare providers. FORMERLY [facility], [facility] Medical History (Updated 08/30/24 @ 09:23 by SORAYA Thakur-MELISSA) TOMASZ (generalized anxiety disorder) MDD (major depressive disorder), recurrent episode Surgical History (Updated 04/30/23 @ 15:04 by CAROL Thakur) History of nephrectomy, right Family History (Updated 07/29/23 @ 10:02 by Seda Samuels CCMA) Father Throat cancer Cardiovascular disease Paternal Grandmother Hypertension Diabetes Maternal Grandfather A-fib Social History (Updated 06/11/23 @ 14:50 by Makenna Elise [facility]) Household Members: Significant Other Housing: Apartment Are you a primary primary care physician to a significant other at home: No Do you presently have visiting nurse or other home services: No 75 years or older and lives alone: No Alcohol intake: current Alcohol intake frequency: holidays/special occasions only Patient Tobacco Use Status: Never used Tobacco e-Cigarette/Vaping Use: Former Use Second Hand Smoke Exposure: No Substance Use Type: Marijuana service: No Current occupational status: employed Current occupation: [employer] Current occupational exposures/hazards: No Sexual orientation: Straight/Heterosexual Gender identity: Male Cognitive needs: No Hearing needs: No Vision needs: Yes Questionnaire PHQ-9 Over the last 2 weeks, how often have you been bothered by any of the following problems? 1. Little interest or pleasure in doing things: not at all 2. Feeling down, depressed, or hopeless: not at all 3. Trouble falling or staying asleep, or sleeping too much: not at all 4. Feeling tired or having little energy: not at all 5. Poor appetite or overeating: not at all 6. Feeling bad about yourself - or that you are a failure or have let yourself or your family down: not at all 7. Trouble concentrating on things, such as reading the newspaper or watching television: not at all 8. Moving or speaking so slowly that other people could have noticed. Or the opposite - being so fidgety or restless that you have been moving around a lot more than usual: not at all 9. Thoughts that you would be better off or of hurting yourself in some way: not at all Total score: 0 Depression Screening Interpretation: Negative Depression Screening Done: Yes 72552 - PHQ-9 Billing: Yes Source: Developed by Drs. Oumar Bauer, Grace Smith, Noé García and colleagues, with an educational suzan from [employer]. Thrive Questionnaire Date Thrive assessed: 08/30/24 I am a: Patient What is your living situation today?: I have a steady place to live Within the past 12 months, did the food you bought not last and you didn't have the money to get more?: I choose not to answer this question Within the past 12 months, did you worry whether your food would run out before you got money to buy more?: I choose not to answer this question Do you have trouble paying for medicines?: No Do you have trouble getting transportation to medical appointments?: No Do you have trouble paying your heating and electricity bill?: No Do you have trouble taking care of your child, family member or friend?: No Do you have trouble with day-to-day activities such as bathing, preparing meals, shopping, managing finances, etc.?: No Are you currently unemployed and looking for a job?: No Are you interested in more education?: No Please select the resources that you would like help with: None Currently or been in a relationship where the following occur: No concerns reported THRIVE Score: 0 AUDIT C Alcohol Use Questionnaire (AUDIT-C) 1. How often do you have a drink containing alcohol?: Never 3. How often do you have six or more drinks on one occasion?: Never Total Score: 0 Score Reviewed/Action Taken: Yes TOMASZ-7 AMB Questionnaire TOMASZ-7 Date TOMASZ - 7 assessed: 08/30/24 Feeling nervous, anxious, or on edge: 0 = Not at all Not being able to stop or control worryin = Not at all Worrying too much about different things: 0 = Not at all Trouble relaxin = Not at all Being so restless that it is hard to sit still: 0 = Not at all Becoming easily annoyed or irritable: 0 = Not at all Feeling afraid as if something awful might happen: 0 = Not at all Total TOMASZ-7 score (0-4 normal; 5-9 mild; 10-14 moderate; 15-21 severe): 0 Source: Developed by Grace Lynn, Noé García and colleagues, with an educational suzan from [employer]. TOMASZ-7 Assessment Billing TOMASZ-7 Assessment Tool: TOMASZ-7 Assessment 84767 ACT Questionnaire In the past 4 weeks, how much of the time did your asthma keep you from getting as much done at work, school or at home?: None of the time During the past 4 weeks, how often have you had shortness of breath?: Not at all During the past 4 weeks, how often did your asthma symptoms wake you up at night or earlier than usual in the morning?: Not at all During the past 4 weeks, how often have you had to use your rescue inhaler or nebulizer medication?: Not at all How would you rate your asthma control during the past 4 weeks?: Completely controlled ACT Interpretation: Negative Score: 25 Physical exam (Primary Care) Vital Signs: Last Vital Signs Temp 97.2 F 08/30/24 08:32 Pulse 63 08/30/24 08:32 Resp 2 L 08/30/24 08:32 BP 124/70 08/30/24 08:32 Pulse Ox 100 08/30/24 08:32 Oxygen Delivery Method Room Air 08/30/24 08:32 BMI result Body Mass Index 20.2 Tobacco/Smoking Status: Tobacco use Status Tobacco use date assessed 08/30/24 08/30/24 08:30 Patient Tobacco Use Status Never used Tobacco 08/30/24 08:30 e-Cigarette/Vaping Use Former Use 08/30/24 08:30 PHQ-9: PHQ-9 Score PHQ-9: Total score 0 08/30/24 08:30 Depression Screening Interpretation: Negative Thrive Assessment: Date of Thrive Assessment Date Thrive assessed 08/30/24 08/30/24 08:30 Currently or been in a relationship where the following occur: No concerns reported Coding Level of Care Code Est Pt Level 3 (67318) Est Pt Prev Care 18-39y(43763) Diagnoses Encounter for general adult medical examination without abnormal findings Z00.00 Mild episode of recurrent major depressive disorder F33.0 Major depression episode severity: mild TOMASZ (generalized anxiety disorder) F41.1 Vitamin D deficiency E55.9 CKD (chronic kidney disease) stage 2, GFR 60-89 ml/min N18.2 History of nephrectomy, right Z90.5 Marfanoid habitus R29.91 Migraine without aura and without status migrainosus, not intractable G43.009 Status migrainosus presence: without status migrainosus Intractability: not intractable Mild intermittent asthma without complication J45.20 Asthma complication type: uncomplicated Tetanus, diphtheria, and acellular pertussis (Tdap) vaccination declined Z28.21 Seasonal allergies J30.2 Onychomycosis B35.1 Paronychia of toe of right foot L03.031 Impacted cerumen, bilateral H61.23 Additional Codes TOMASZ-7 Assessment Billing - TOMASZ-7 Assessment Tool: TOMASZ-7 Assessment 58114 ([id number]) PHQ-9 - 96288 - PHQ-9 Billing: Yes ([id number]) Asthma Control Questionnaire - ACT Interpretation: Negative ([id number]) Assessment & Plan Assessment & Plan (1) Encounter for general adult medical examination without abnormal findings: Onset Date: ~08/30/24 Code(s): Z00.00 - Encounter for general adult medical examination without abnormal findings Category: Medical (2) MDD (major depressive disorder), recurrent episode: Comment: see TOMASZ Code(s): F33.9 - Major depressive disorder, recurrent, unspecified Category: Medical Qualifiers: Major depression episode severity: mild Qualified Code(s): F33.0 - Major depressive disorder, recurrent, mild (3) TOMASZ (generalized anxiety disorder): Comment: Referred to counseling - in past was on sertraline 50mg QD Code(s): F41.1 - Generalized anxiety disorder Category: Medical (4) Vitamin D deficiency: Comment: normal vit d level on current supplement in the past Code(s): E55.9 - Vitamin D deficiency, unspecified Category: Medical (5) CKD (chronic kidney disease) stage 2, GFR 60-89 ml/min: Comment: hydronephrosis of the left kidney status post nephrectomy for nonfunctioning right kidney in 2001, left vesicular ureteral reflux and post ureteral valve, valve fulguration as a in the left reimplantation in 2001 and again in 2002, Code(s): N18.2 - Chronic kidney disease, stage 2 (mild) Category: Medical (6) History of nephrectomy, right: Comment: hydronephrosis of the left kidney status post nephrectomy for nonfunctioning right kidney in 2002, left vesicular ureteral reflux and post ureteral valve, valve fulguration as a in the left reimplantation in 2001 and again in 2002, Code(s): Z90.5 - Acquired absence of kidney Category: Surgical (7) Marfanoid habitus: Comment: malar hypoplasia, enophthalmos, downward slanting palpebral fissures, positive wrist and thumb sign, scoliosis. Echocardiogram within normal limits in 2018. reports no longer requires cards f/u or Echo. chiro for c/o chronic neck, back, shoulder pain Code(s): R29.91 - Unspecified symptoms and signs involving the musculoskeletal system Category: Medical (8) Migraine headache without aura: Code(s): G43.009 - Migraine without aura, not intractable, without status migrainosus Category: Medical Qualifiers: Status migrainosus presence: without status migrainosus Intractability: not intractable Qualified Code(s): G43.009 - Migraine without aura, not intractable, without status migrainosus (9) Mild intermittent asthma: Code(s): J45.20 - Mild intermittent asthma, uncomplicated Category: Medical Qualifiers: Asthma complication type: uncomplicated Qualified Code(s): J45.20 - Mild intermittent asthma, uncomplicated (10) Tetanus, diphtheria, and acellular pertussis (Tdap) vaccination declined: Code(s): Z28.21 - Immunization not carried out because of patient refusal Category: Medical (11) Seasonal allergies: Comment: use [facility] Code(s): J30.2 - Other seasonal allergic rhinitis Category: Medical (12) Onychomycosis: Code(s): B35.1 - Tinea unguium Category: Medical (13) Paronychia of toe of right foot: Code(s): L03.031 - Cellulitis of right toe Category: Medical (14) Impacted cerumen, bilateral: Comment: Earwax (Cerumen Impaction) Created in Ears Earwax, called cerumen, is produced by special wax-forming glands located in the skin of the outer one-third of the ear canal. It is normal to have cerumen in ear canal as this waxy substance serves as a self-cleaning agent with protective, lubricating, and antibacterial properties. The absence of earwax may result in dry, itchy ears. Self-cleaning means there is a slow and food tray assembler movement of earwax and skin cells from the eardrum to the ear opening. Old earwax is constantly being transported, assisted by chewing and jaw motion, from the ear canal to the ear opening where, most of the time, it dries, flakes, and falls out. What Are the Symptoms of an Earwax Blockage? Symptoms of an earwax problem may include: Earache Feeling of plugged hearing or fullness in the ear Partial hearing loss that gets worse Tinnitus, ringing, or noises in the ear Itching, odor, or discharge Coughing Pain Infection What Causes Earwax Blockage? When a patient has wax blockage against the eardrum, it is often because they have been probing the ear with such things as cotton-tipped swabs, brody pins, or twisted napkin corners. These objects only push the wax in deeper in the ear canal. Why Is It Dangerous to Use Swabs to Remove Earwax? Wax blockage is one of the most common causes of hearing loss. This is often caused by attempts to clean the ear with cotton swabs. Most cleaning attempts merely push the wax deeper into the ear canal which is shaped like an hourglass, causing a blockage at the narrowing part of the ear canal. In addition, accidental trauma to the ear drum or ear bones can occur if the swab is pushed too deep. Good intentions to keep ears clean may lessen the ability to hear. The ear is a delicate and complicated body part, including the skin of the ear canal and the eardrum. Therefore, special care should be given to this part of the body. Discontinue the habit of inserting cotton-tipped swabs or other objects into the ear canals. What Are the Treatment Options? Cleaning a working ear can be done by washing it with a soft cloth, but do not insert anything into the ear. Ideally, the ear canals should never have to be cleaned. However, that isn?t always the case. The ears should be cleaned when enough earwax gathers to cause symptoms or to prevent a needed assessment of the ear by your doctor. This condition is call cerumen impaction. Most cases of ear wax blockage respond to home treatments used to soften wax. Patients can try placing a few drops of mineral oil, baby oil, glycerin, or commercial drops in the ear. Detergent drops such as hydrogen peroxide or carbamide peroxide (available in most pharmacies) may also aid in the removal of wax. Irrigation or ear syringing is commonly used for cleaning and can be performed by a physician or at home using a commercially available irrigation kit. Common solutions used for syringing include water and saline, which should be warmed to body temperature to prevent dizziness. Ear syringing is most effective when water, saline, or wax dissolving drops are put in the ear canal 15 to 30 minutes before treatment. Caution is advised to avoid having your ears irrigated if you have diabetes, a hole in the eardrum (perforation), tube in the eardrum, skin problems such as eczema in the ear canal or a weakened immune system. >> If you have been prescribed Debrox, use as directed for 5 nights and return to the office on Day 6 for an ear lavage to remove the wax<< Manual removal of earwax is also effective. This is most often performed by an ENT (ear, nose, and throat) specialist, or supervisor assembly room, using suction or special miniature instruments, and a microscope to magnify the ear canal. Manual removal is preferred if your ear canal is narrow, the eardrum has a perforation or tube, other methods have failed, or if you have skin problems affecting the ear canal, diabetes or a weakened immune system. When Should I Talk to a Doctor? If home treatments do not help, or if wax has accumulated so much that it blocks your ear canal and your ability to hear, an ENT specialist may prescribe eardrops designed to soften wax, or they may wash or vacuum it out. Your ENT specialist may also need to remove the wax under microscopic visualization. If there is a possibility of a perforation in the eardrum, consult a physician prior to trying any [id number] remedies. Putting eardrops or other products in the ear with the presence of an eardrum perforation may cause pain or an infection. Washing water through such a hole could start an infection. If you are prone to repeated wax impaction or use hearing aids, consider seeing your doctor every six to 12 months for a checkup and routine preventive cleaning. What Questions Should I Ask My Doctor? What are the benefits and risks/side effects of different cerumen removal management options: earwax softening products, water irrigation vs. physical removal? Does cerumen accumulation vary with age, gender, familial or dietary intake? How do I manage swimming underwater with cerumen impaction? Should anything be done to the ears to prevent a buildup of earwax? How often should cerumen be removed from the ears? Are ear candles a safe option for removing earwax? Code(s): H61.23 - Impacted cerumen, bilateral Category: Medical Plan . Orders: Referrals Podiatry Referral B35.1 - Tinea unguium, L03.031 - Cellulitis of right toe Medications: Discontinued sumatriptan succinate (Imitrex) Discontinued Reason: Patient no longer taking take 1 tab at onset of headache; if no relief may repeat 1 tab after at least 2 hrs; max = 4 tabs/24 hr PO 7 tabs 4RF Patient Instructions: Feverfew - buy OTC DEBROX for your ears Health screenings for men You should visit your health care provider regularly, even if you feel healthy. The purpose of these visits is to: Screen for medical issues Assess your risk for future medical problems Encourage a healthy lifestyle Update vaccinations and other preventive care services Help you get to know your provider in case of an illness Information Even if you feel fine, you should still see your provider for regular checkups. These visits can help you avoid problems in the future. For example, the only way to find out if you have high blood pressure is to have it checked regularly. High blood sugar and high cholesterol level also may not have any symptoms in the early stages. Simple blood tests can check for these conditions. There are specific times when you should see your provider or receive specific health screenings. The [place] Preventive Services Task Force publishes a list of recommended screenings. Below are screening guidelines for men ages 40 to 64. BLOOD PRESSURE SCREENING Have your blood pressure checked at least once every year. Watch for blood pressure screenings in your area. Ask your provider if you can stop in to have your blood pressure checked. Ask your provider if you need your blood pressure checked more often if: You have diabetes, heart disease, kidney problems, or are overweight or have certain other health conditions You have a first-degree relative with high blood pressure You are Black Your blood pressure top number is from 120 to 129 mm Hg, or the bottom number is from 70 to 79 mm Hg If the top number is 130 mm Hg or greater or the bottom number is 80 mm Hg or greater, this is considered stage 1 hypertension. Schedule an appointment with your provider to learn how you can lower your blood pressure. Effects of age on blood pressure CHOLESTEROL SCREENING Cholesterol screening should begin at age 35 for men with no known risk factors for coronary heart disease. Repeat cholesterol screening should take place: Every 5 years for men with normal cholesterol levels More often if changes occur in lifestyle (including weight gain and diet) More often if you have diabetes, heart disease, kidney problems, or certain other conditions COLORECTAL CANCER SCREENING If you are under age 45, talk to your provider about getting screened. You may need to be screened if you have a strong family history of colon cancer or polyps. Screening may also be considered if you have risk factors such as a history of inflammatory bowel disease or polyps. If you are age 45 to 75, you should be screened for colorectal cancer. There are several screening tests available: A stool-based fecal occult blood (gFOBT) or fecal immunochemical test (FIT) every year A stool sDNA test every 1 to 3 years Flexible sigmoidoscopy every 5 years or every 10 years with stool testing FIT done every year CT colonography (virtual colonoscopy) every 5 years Colonoscopy every 10 years You may need a colonoscopy more often if you have risk factors for colorectal cancer, such as: Ulcerative colitis A personal or family history of colorectal cancer A history of growths in your colon called adenomatous polyps DENTAL EXAM Go to the dentist once or twice every year for an exam and cleaning. Your dentist will evaluate if you have a need for more frequent visits. DIABETES SCREENING All adults who do not have risk factors for diabetes should be screened starting at age 35 and repeated every 3 years. If you have other risk factors for diabetes, such as a first degree relative with diabetes, overweight or obesity, high blood pressure, prediabetes, or a history of heart disease, you may be tested more often. If you are overweight and have other risk factors, such as high blood pressure and are planning to become , screening is recommended. EYE EXAM Have an eye exam every 2 to 4 years ages 40 to 54 and every 1 to 3 years ages 55 to 64. Your provider may recommend more frequent eye exams if you have vision problems or glaucoma risk. Have an eye exam that includes an examination of your retina (back of your eye) at least every year if you have diabetes. IMMUNIZATIONS Commonly needed vaccines include: Flu shot: get one every year COVID-19 vaccine: ask your provider what is best for you Tetanus-diphtheria and acellular pertussis (Tdap) vaccine: have as one of your tetanus-diphtheria vaccines if you did not receive it as an adolescent Tetanus-diphtheria: have a booster (or Tdap) every 10 years Varicella vaccine: receive 2 doses if you never had chickenpox or the varicella vaccine and were born in 1980 or after Hepatitis B vaccine: receive 2, 3, or 4 doses, depending on your exact circumstances, if you did not receive these as a child or adolescent, until age 59 Shingles (herpes zoster) vaccine: at or after age 50 Ask your provider if you should receive other immunizations, especially if you have certain medical conditions, such as diabetes or are at increased risk for some diseases such as pneumonia. INFECTIOUS DISEASE SCREENING Screening for hepatitis C: all adults ages 18 to 79 should get a one-time test for hepatitis C. Screening for human immunodeficiency virus (HIV): all people ages 15 to 65 should get a one-time test for HIV. Depending on your lifestyle and medical history, you may need to be screened for infections such as syphilis, chlamydia, and other infections. LUNG CANCER SCREENING You should have an annual screening for lung cancer with low-dose computed tomography (LDCT) if: You are age 50 to 80 years AND You have a 20 pack-year smoking history AND You currently smoke or have quit within the past 15 years OSTEOPOROSIS SCREENING If you are age 50 to 64 and have risk factors for osteoporosis, you should discuss screening with your provider. Risk factors can include long-term steroid use, low body weight, smoking, heavy alcohol use, having a fracture after age 50, or a family history of hip fracture or osteoporosis. Osteoporosis PHYSICAL EXAM All adults should visit their provider from time to time, even if they are healthy. The purpose of these visits is to: Screen for diseases Assess risk of future medical problems Encourage a healthy lifestyle Update vaccinations and other preventive care services Maintain a relationship with a provider in case of an illness Your height, weight, and body mass index (BMI) should be checked at every exam. During your exam, your provider may ask you about: Depression and anxiety Diet and exercise Alcohol and tobacco use Safety, such as use of seat belts and smoke detectors Your medicines and risk for interactions PROSTATE CANCER SCREENING If you're 55 through 69 years old, before having the test, talk to your provider about the pros and cons of having a PSA test. Ask about: Whether screening decreases your chance of dying from prostate cancer. Whether there is any harm from prostate cancer screening, such as side effects from testing or overtreatment of cancer when discovered. Whether you have a higher risk of prostate cancer than others. If you are age 55 or younger, screening is not generally recommended. You should talk with your provider about if you have a higher risk for prostate cancer. Risk factors include: Having a family history of prostate cancer (especially a brother or father) Being If you choose to be tested, the PSA blood test is repeated over time (yearly or less often), though the best frequency is not known. Prostate examinations are no longer routinely done on men with no symptoms. Prostate cancer SKIN EXAM Your provider may check your skin for signs of skin cancer, especially if you're at high risk. People at high risk include those who have had skin cancer before, have close relatives with skin cancer, or have a weakened immune system. TESTICULAR EXAM The [place] Preventive Services Task Force (USPSTF) now recommends against performing testicular self-exams. Doing testicular self-exams has been shown to have little to no benefit.
--- OUTSIDE RECORDS SUMMARY | 2024-08-30 08:31 | XMS_ITS | Clinical Summary ---
Author Organization [facility] Address [address] [place] [address] Phone Care Team Providers Care Sailing Master Name Role Phone Kylee Kirti LIRA Primary Care Provider [phone] Allergies No known active allergies Medications No [...] 2001 and again 2002. 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 Will make referral to [facility] to re-establish monitoring. Staff will need [...] Office Visit [facility] [address] [phone] Raphael Mariee MD [address] [phone] 09/06/2024 Orders Only [facility] [address] [phone] Raphael Mariee MD [address] [phone] Chronic kidney disease, stage 2 (mild); Obstructive nephropathy; Vesicoureteric reflux; S/P nephrectomy; Marfanoid facies; Marfanoid physique Health Maintenance Due Date Last Done Comments Pneumococcal Vaccine: Peds ( 0 to 5 Years) and At-Risk Patients (6 to 49 Years) (1 of 2 - PCV) 11/19/2019 05/23/2001, 03/21/2001, 01/17/2001 Influenza Vaccine (#1) 2024 11/20/2011 Pneumococcal Vaccine: 50+ Years Discontinued 05/23/2001, 03/21/2001, 01/17/2001 Hepatitis B Vaccine Completed 05/22/2002, 08/30/2001, [address] [place] [id number] [id number] [address] [place] [id number] [facility] ([id number]) Care Teams Sailing Master Relationship Specialty Start Date End Date Kirti Pichardo FNP [address] [place] [id number] PCP - General Nurse Practitioner 03/09/24
[2024-08-30 08:32] VITALS: BP 124/70; PULSE 63; RESP 12; TEMP 36.2; O2SAT 100; BMI 20.2
== END 2024-08-30 09:16 | disposition home or self-care (01) ==
LOC: HO.HMCFM 08:26
PROVIDERS: PCP Nurse Practitioner Family; Visit Provider Nurse Practitioner Family
DX: Z00.00 Encounter for general adult medical examination without abnormal findings (principal); N18.2 Chronic kidney disease, stage 2 (mild); F33.0 Major depressive disorder, recurrent, mild; F41.1 Generalized anxiety disorder; E55.9 Vitamin D deficiency, unspecified; Z90.5 Acquired absence of kidney; R29.91 Unspecified symptoms and signs involving the musculoskeletal system; G43.009 Migraine without aura, not intractable, without status migrainosus; J45.20 Mild intermittent asthma, uncomplicated; B35.1 Tinea unguium; L03.031 Cellulitis of right toe; H61.23 Impacted cerumen, bilateral

== ENCOUNTER → 2024-08-30 08:25 | Outpatient (BNVA) | payer OTHER, SELFPAY | PROVIDERS: PCP Nurse Practitioner Family; Visit Provider Nurse Practitioner Family | DX: Z00.00 Encounter for general adult medical examination without abnormal findings (principal); J45.909 Unspecified asthma, uncomplicated; F41.1 Generalized anxiety disorder; G43.909 Migraine, unspecified, not intractable, without status migrainosus; F33.0 Major depressive disorder, recurrent, mild; E55.9 Vitamin D deficiency, unspecified; R29.91 Unspecified symptoms and signs involving the musculoskeletal system; J45.20 Mild intermittent asthma, uncomplicated; B35.1 Tinea unguium; L03.031 Cellulitis of right toe; H61.23 Impacted cerumen, bilateral; N18.2 Chronic kidney disease, stage 2 (mild); Z90.5 Acquired absence of kidney; Z28.21 Immunization not carried out because of patient refusal | CPT/HCPCS: 96127; 96160 ==

== ENCOUNTER 2024-10-04 12:38 | Outpatient (AMB) | payer OTHER, SELFPAY ==
--- NOTE | 2024-10-04 12:41 | AM.OFFWIN_ITS ---
Intake Vital Signs 10/04/24 12:44 Height 6 ft 3 in Weight 163 lb 6 oz BMI 20.4 BP 124/74 Blood Pressure Location Lt brachial Position Sitting Respiration 12 Pulse 99 Pulse Source Pulse Oximeter Temp 97.6 F Temp Source Oral Pulse Oximetry (%) 99 Oxygen Delivery Method Room Air Intake Visit Reasons: ABD Pain Intake Note: Patient c/o upper abd px and patient states is worse when he eats it started 48 hours ago. Patient haven't ate to avoid getting the pain worse. 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 - Abdominal pain for 48+ hours, localize d to mid upper abdomen. Started after eating [place] Islander food - Pain worsens with food intake, especia lly spicy or fatty foods. - No nausea, vomiting, or fever reported . - Early diarrhea, now resolved. - Sensation of a shifting 'lump' noted o n side lying. - Sx are better since onset and almost g one right now; did not eat anything yet today. - No medical history of similar symptoms . - Normal body temperature; girlfriend valencia chery flu. Review of Systems - Gastrointestinal: Reports abdominal pa in, reports previous diarrhea (resolved), denies nausea, vomiting, and constipation. - General: Denies fever. - Temperature: Normal Physical Exam General: Well developed, well nourished, in no acute distress. Appears stated age. Head: Normocephalic, atraumatic. Eyes: Pupils are equal, round and reactive to light and accommodation. Conjunctivae are clear. Scleras nonicteric MMM Lungs: Clear to auscultation bilaterally. No rales, rhonchi or wheeze noted. Good air flow in all tabor. Heart: Regular rate and rhythm. No murmurs, click, rubs or gallops are noted. Abdomen: Soft, normoactive BS x 4, mild tenderness above umbilicus w/o rebound, no gaurding, rigidity or peritoneal signs; negative murphys; negative McBurneys point. No CVAT Discussion Notes I explained to the patient that the likely cause of his abdominal pain could be gastritis, potentially aggravated by dietary factors such as spicy and fatty foods. We decided to start treatment with famotidine (Pepcid) to manage symptoms of gastritis, with instructions to take the medication at bedtime. I advised the patient to monitor symptoms for improvement over the next few days, and if disc omfort persists, he can increase the frequency of the medication to twice daily. I also recommended avoiding trigger foods that exacerbate the symptoms and suggested that gentle, non-acidic foods may be better tolerated. I emphasized the importance of portal communication to provide updates on symptoms. We also discussed the benefit of dairy to the gut, provided he is not lactose intolerant, and agreed to meet again if symptoms do not resolve. Patient was given time to ask questions. All questions were answered to their satisfaction. Assessment and Plan 1. Abdominal Pain - Suspect gastritis. - Start famotidine at bedtime; increase to twice daily if needed. - Avoid spicy and fatty foods. - Trial gentle foods like dairy if no la ctose intolerance. - Update via portal for progression. Patient Instructions - Take famotidine (Pepcid) at bedtime, s tart tonight. - Avoid spicy and fatty foods for next f ew days. - Eat gentle foods that don?t irritate y our stomach. - Send a message if symptoms don't impro ve. - Watch for triggers and avoid them. - Check if dairy is fine; avoid if you a re lactose intolerant. Consent Patient was informed and verbally consented to the use of an ambient scribe for clinic note documentation during this visit. Total time spent caring for the patient today was 30 minutes. This includes time spent before the visit reviewing the chart, time spent during the visit, and time spent after the visit on documentation, reviewing laboratory results, diagnostic imaging, medications, performing a medically necessary evaluation, counseling on diagnoses, care coordination, ordering appropriate tests, ordering appropriate medications, review of tests performed by other providers, reporting test results with the patient, communication with other healthcare providers. [facility] Medical History (Updated 10/04/24 @ 13:27 by CAROL Thakur) TOMASZ (generalized anxiety disorder) MDD (major depressive disorder), recurrent episode Surgical History (Updated 04/30/23 @ 15:04 by CAROL Thakur) History of nephrectomy, right Family History (Updated 07/29/23 @ 10:02 by Seda Samuels [facility]) Father Throat cancer Cardiovascular disease Paternal Grandmother Hypertension Diabetes Maternal Grandfather A-fib Social History (Updated 06/11/23 @ 14:50 by Makenna Elise [facility]) Household Members: Significant Other Housing: Apartment Are you a primary memory care program resident to a significant other at home: No Do you presently have visiting nurse or other home services: No 75 years or older and lives alone: No Alcohol intake: current Alcohol intake frequency: holidays/special occasions only Patient Tobacco Use Status: Never used Tobacco e-Cigarette/Vaping Use: Former Use Second Hand Smoke Exposure: No Substance Use Type: Marijuana service: No Current occupational status: employed Current occupation: [employer] Current occupational exposures/hazards: No Sexual orientation: Straight/Heterosexual Gender identity: Male Cognitive needs: No Hearing needs: No Vision needs: Yes Physical Exam Vital Signs: Last Vital Signs Temp 97.6 F 10/04/24 12:44 Pulse 99 10/04/24 12:44 Resp 12 10/04/24 12:44 BP 124/74 10/04/24 12:44 Pulse Ox 99 10/04/24 12:44 Oxygen Delivery Method Room Air 10/04/24 12:44 BMI result Body Mass Index 20.4 Assessment & Plan Assessment & Plan (1) Abdominal pain: Code(s): R10.9 - Unspecified abdominal pain Qualifiers: Abdominal location: periumbilical Qualified Code(s): R10.33 - Periumbilical pain Plan , Medications: New famotidine 20 mg PO BEDTIME 30 tabs 0RF Coding Level of Care Code Est Pt Level 4 (04693) Diagnoses Periumbilical abdominal pain R10.33 Abdominal location: periumbilical
[2024-10-04 12:44] VITALS: BP 124/74; PULSE 99; RESP 12; TEMP 36.4; O2SAT 99; BMI 20.4
--- OUTSIDE RECORDS SUMMARY | 2024-10-04 13:30 | XMS_ITS | Clinical Summary ---
Author Organization [facility] Address [address] [place] [address] Phone Care Team Providers Care Relocation Coordinator Name Role Phone Kylee Kirti LIRA Primary [...] 2001 and again 2002. 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 Will make referral to [facility] to re-establish monitoring. Staff will need to call to arrange. He will let me know if he has any return of pain. Encounters Date Type Department Care Team Description 09/06/2024 Orders Only [facility] [address] [place] [phone] Raphael Mariee MD Chronic kidney disease, stage 2 (mild); Obstructive nephropathy; Vesicoureteric reflux; S/P nephrectomy; Marfanoid facies; Marfanoid physique from Last 3 Months Immunizations Immunization Administration Dates Next Due DTaP [...] Care Team (Late st Contact Info) Description 10/26/2024 8:40 AM EDT Office Visit [facility] [address] [phone] Raphael Mariee MD [address] [phone] Health Maintenance Due Date Last Done Comments Pneumococcal Vaccine: Peds ( 0 to 5 Years) and At-Risk Patients (6 to 49 Years) (1 of 2 - PCV) 11/19/2019 05/23/2001, 03/21/2001, 01/17/2001 Influenza Vaccine (#1) 2024 11/20/2011 Pneumococcal Vaccine: 50+ Years Discontinued 05/23/2001, 03/21/2001, 01/17/2001 Hepatitis B Vaccine Completed 05/22/2002, 08/30/2001, 2000 [id number] Care Teams Relocation Coordinator Relationship Specialty Start Date End Date Kirti Pichardo FNP [address] [place] [id number] PCP - General Nurse Practitioner 03/09/24
== END 2024-10-04 16:24 | disposition home or self-care (01) ==
LOC: HO.HMCFM 12:39
PROVIDERS: PCP Nurse Practitioner Family; Visit Provider Nurse Practitioner Family
DX: R10.33 Periumbilical pain (principal)